=== PATIENT | female | born 1940 | race Caucasian/White ===

== ENCOUNTER → 2018-11-07 | Outpatient (CLI) | payer MEDICARE | END | disposition home or self-care (01) | LOC: LAB SHORT 19:32 → LAB EV 19:32 | DX: N39.0 Urinary tract infection, site not specified (principal) | CPT/HCPCS: 87086 ==

== ENCOUNTER 2019-03-19 21:25 | Emergency (ER) | payer MEDICARE ==
[~2019-03-19] VITALS: Ht 152.4 cm; Wt 74.8 kg
[2019-03-19 23:17] LABS: Source, Urine Clean Catch
[2019-03-19] MEDS ORDERED: Pyridium100 MG PO (23:18)
[2019-03-19] MEDS ORDERED: CEPH500 PO (23:18)
[2019-03-19 23:22] LABS: Bilirubin, Urine Neg (Neg); Blood, Urine 5+ (Neg); Glucose Qualitative, Urine Neg (Neg); Ketones, Urine 1+ (Neg); Leukocyte Esterase, Urine 3+ (Neg); Nitrite, Urine Neg (Neg); Protein, Urine 4+ (Neg); Urobilinogen, Urine NORM (Normal)
[2019-03-19 23:30] LABS: Appearance, Urine Cloudy (Clear); Color, Urine Red (P-Yellow)
[2019-03-19 23:31] LABS: Bacteria Few /hpf; Red Blood Cells, Urine TNTC /hpf (0-2); Squamous Epithelial Cells Few /hpf (Few); White Blood Cells, Urine 50-100 /hpf (0-5)
== END 2019-03-19 23:49 | disposition home or self-care (01) ==
LOC: ER 21:25
PROVIDERS: Physician Assistant
DX: N30.90 Cystitis, unspecified without hematuria (principal); I10 Essential (primary) hypertension; Z88.0 Allergy status to penicillin
CPT/HCPCS: 81001; 87086; 99283

== ENCOUNTER 2019-04-27 11:35 | Inpatient (IN) | payer MEDICARE ==
[~2019-04-27] VITALS: Ht 162.6 cm; Wt 74.0 kg
[~2019-04-27 11:35] MED LIST: ALBU90OI INH; AMOCLA875 PO; ARIP20 PO; ATOR40TA PO; AZIT500 PO; Acidophilus1 EAC1 PO; Augmentin 875-1 EACH PO; BREO ELLIPTA 11 EACH INH; CEFU500T30 PO; CEPH500 PO; CLOP75 PO; ELIQUIS5 MG PO; FURO40 PO; HYDURE500 PO; LEVSOD100 PO; LOSA25 PO; METO50 PO; Metronidazole T45 GM TOP; PANT40 PO; POTA20LUD PO; Pedi-Dri 100,0060 GM TOP; Pyridium100 MG PO; Roxicodone5 MG PO
[2019-04-27 12:24] LABS: BASOPHILS ABSOLUTE AUTO 0.12 K/mm3 (0.00-0.23); BASOPHILS PERCENT AUTO 1 % (0-2); EOSINOPHILS ABSOLUTE AUTO 0.02 K/mm3 (0.00-0.68); EOSINOPHILS PERCENT AUTO 0 % (0-6); Hematocrit 47.9 % (33.0-51.0); IMMATURE GRAN ABSOLUTE AUTO 0.44 K/mm3 (0.00-0.10); IMMATURE GRAN PERCENT AUTO 3 % (0-1); LYMPHOCYTES ABSOLUTE AUTO 0.69 K/mm3 (0.84-5.20); LYMPHOCYTES PERCENT AUTO 4 % (21-46); MONOCYTES ABSOLUTE AUTO 0.49 K/mm3 (0.16-1.47); MONOCYTES PERCENT AUTO 3 % (4-13); Mean Corpuscular HGB 23.5 pg (26.0-34.0); Mean Corpuscular HGB Conc 29.2 g/dL (31.5-36.5); Mean Corpuscular Volume 81 fL (80-100); NEUTROPHILS ABSOLUTE AUTO 16.02 K/mm3 (1.96-9.15); NEUTROPHILS PERCENT AUTO 90 % (41-73); Platelet Count 200 K/mm3 (150-400); RDW Coefficient Variation 19.1 % (11.7-14.2); RDW Standard Deviation 52.3 fL (35.1-46.3); Red Blood Cell Count 5.95 M/mm3 (3.80-5.20); White Blood Cell Count 17.78 K/mm3 (4.00-11.30)
[2019-04-27 12:32] LABS: Alanine Aminotransfer (ALT/SGP 39 U/L (12-78); Albumin, Blood 2.7 g/dL (3.4-5.0); Albumin/Globulin Ratio 0.6 (0.8-1.8); Alk Phos 85 U/L (50-136); Anion Gap 7 mmol/L (6-16); Aspartate Aminotrans (AST/SGOT 100 U/L (12-37); Bilirubin, Total 0.7 mg/dL (0.1-1.0); Blood Urea Nitrogen 16 mg/dL (8-24); Bun/Creatinine Ratio 19.5 (12.0-20.0); CO2, Blood 26 mmol/L (21-32); Calcium, Blood 8.7 mg/dL (8.5-10.1); Chloride, Blood 103 mmol/L (98-108); Creatinine, Blood 0.82 mg/dL (0.40-1.00); Globulin, Blood 4.7 g/dL (2.2-4.0); Glomerular Filtration Rate >60 (60-); Glucose, Blood 116 mg/dL (70-99); Potassium, Blood 4.2 mmol/L (3.5-5.5); Sodium, Blood 136 mmol/L (136-145); Total Protein, Blood 7.4 g/dL (6.4-8.2)
[2019-04-27 12:34] LABS: Troponin I 0.091 ng/mL (0.000-0.040)
[2019-04-27] MEDS ORDERED: HYDURE500 PO (15:02)
--- NOTE | 2019-04-27 18:02 | NUR ---
ECHOCARDIOGRAM COMPLETE
[2019-04-27 18:35] LABS: Adenovirus Not Detected (NOT DETECT); Bordetella pertussis Not Detected (NOT DETECT); Chlamydophila pneumoniae Not Detected (NOT DETECT); Coronavirus 229E Not Detected (NOT DETECT); Coronavirus HKU1 Not Detected (NOT DETECT); Coronavirus NL63 Not Detected (NOT DETECT); Coronavirus OC43 Not Detected (NOT DETECT); Human Metapneumovirus Not Detected (NOT DETECT); Human Rhinovirus/Enterovirus Not Detected (NOT DETECT); Influenza A/2009-H1 Not Detected (NOT DETECT); Influenza A/H1 Not Detected (NOT DETECT); Influenza A/H3 Not Detected (NOT DETECT); Influenza B Not Detected (NOT DETECT); Mycoplasma pneumoniae Not Detected (NOT DETECT); Parainfluenza Virus 1 Not Detected (NOT DETECT); Parainfluenza Virus 2 Not Detected (NOT DETECT); Parainfluenza Virus 3 Not Detected (NOT DETECT); Parainfluenza Virus 4 Not Detected (NOT DETECT); Respiratory Syncytial Virus Not Detected (NOT DETECT)
--- NOTE | 2019-04-27 19:39 | NUR ---
SHIFT SUMMARY- PT ADMITTED THROUGH THE ED. IVF STARTED, SCHEDULED MEDS GIVEN. PT SISTER HAS BEEN ASSISTING WITH HER ADLS. PT HAS HAD SEVERAL FALLS AT HOME SINCE DISCHARGE 9 DAYS AGO. PT WAS SEEN IN THE ED YESTERDAY FOR A FALL SEE ED DOCUMAENTATION FOR DETAILS. PT C/O PAIN BUT WAS MEDICATED PRIOR TO ADMISSION IN ED. PT MEDICATED WITH IV FENTANYL WHEN THE ECHO WAS BEING DONE THE CHEST IS THE CENTER FOR ALL OF HER ACUTE PAIN AT THIS TIME. LACERATION NOTED LEFT UPPER CHEST NEAR THE COLLAR BONE, FAINT BRUISING NOTED FROM THE LACERATION DOWN TO THE BASE OF THE STERNUM AND ACROSS THE CHEST. TROPONIN WAS ELEVATED .09 SECOND DRAW WAS 0.085. PT WAS PROVIDED A PILLOW FOR SPLINTING RESPIRATIONS, TURNED DOWN THE LIGHTS AND PT STATED HER PAIN WAS DOWN TO A 4/10 AFTER A FEW MINUTES AT REST.
--- NOTE | 2019-04-28 03:40 | NUR ---
PT PAIN UNCONTROLLED BY PRESENT PAIN RX. CALLED TO HOSPITALIST RECIEVED ORDER FOR DILAUDID.
[2019-04-28 06:03] LABS: Hemoglobin 12.4 g/dL (11.5-16.0); Mean Corpuscular HGB 23.3 pg (26.0-34.0); Mean Corpuscular HGB Conc 28.2 g/dL (31.5-36.5); Mean Corpuscular Volume 83 fL (80-100); Platelet Count 195 K/mm3 (150-400); RDW Coefficient Variation 18.5 % (11.7-14.2); RDW Standard Deviation 54.9 fL (35.1-46.3); Red Blood Cell Count 5.32 M/mm3 (3.80-5.20); White Blood Cell Count 14.52 K/mm3 (4.00-11.30)
[2019-04-28 06:04] LABS: Mean Platelet Volume 10.4 fL (9.1-12.4)
[2019-04-28 06:20] LABS: Anion Gap 4 mmol/L (6-16); Blood Urea Nitrogen 16 mg/dL (8-24); Bun/Creatinine Ratio 17.4 (12.0-20.0); CO2, Blood 28 mmol/L (21-32); Calcium, Blood 8.3 mg/dL (8.5-10.1); Chloride, Blood 108 mmol/L (98-108); Creatinine, Blood 0.92 mg/dL (0.40-1.00); Glomerular Filtration Rate >60 (60-); Glucose, Blood 101 mg/dL (70-99); Potassium, Blood 4.1 mmol/L (3.5-5.5); Sodium, Blood 140 mmol/L (136-145); Troponin I 0.057 ng/mL (0.000-0.040)
--- NOTE | 2019-04-28 07:56 | NUR ---
SHIFT SUMMARY PT IS PLEASANT AND COOPERATIVE WITH CARE. AAOX4. RESPIRATIONS ARE GUARDED AND PT HAS HAD QUITE A LOT OF PAIN IN HER CHEST CAUSED FROM A FALL AT HOME. SHE HAS BEEN TREATED THROUGH THE NIGHT FOR PAIN. DURING ATTENDS CHANGE AND REPOSITION LAST NIGHT PT CRIED OUT AND SAID PAIN WAS MUCH WORSE DUE TO ROLLING HER ON HER SIDE DURING ATTENDS CHANGE. CALLED TO HOSPITALIST AND OBTAINED ORDER FOR DILAUDED. THIS WAS GIVEN AND PT RELATED IT HELPED BUT DID NOT RESOLVE PAIN. PT SATS DROPPED TO 89 WITH DIALUDID ADMIN HOWEVER. WHEN ASKED ABOUT PAIN PT POINTS TO MID STERNUM AND STAYS IT IS WORSE WITH DEEP BREATHING AND MOVEMENT. VSS. ON TELE SR 96 ON LAST CHECK, AROUND 0630, PER ETCH OPERATOR SEMICONDUCTOR WAFERS. REPORT TO ONCOMING RN.
--- NOTE | 2019-04-28 16:45 | NUR ---
SHIFT SUMMARY- PT IS SLEEPING MUCH OF THIS SHIFT. SHE IS PAINFUL FROM HER FALL. FAMILY IS CONCERNED ABOUT WHAT WILL HAPPEN AFTER DISCHARG AND THEY ARE CONCERNED ABOUT IF SHE WILL GET BETTER OR NOT. PT IS INCONTINENT. HER AFFECT IS FLAT. SHE REPORTED HAVING A POOR APPETITE A FEW DAYS PRIOR TO ADMISSION, DUE TO FEELING POORLY FROM [place]. PHYSICAL THERAPY AND OCCUPATIONAL THERAPY TO EVALUATE, PT WAS TOO PAINFUL FOR THEM TO EVALUATE TODAY, THEY WILL TRY AGAIN TOMORROW. PT WAS EVALUATED BY SPEECH THERAPY AND WAS PLACED ON NPO STATUS. DR. RODRIGUEZ WAS NOTIFIED. SPEECH THERAPY WILL CONTINUE TO WORK WITH THE PT. PALLATIVE CARE CONSULT PLACED DUE TO FAMILYS CONCERNS.
[2019-04-29 04:31] LABS: BASOPHILS ABSOLUTE AUTO 0.05 K/mm3 (0.00-0.23); BASOPHILS PERCENT AUTO 0 % (0-2); EOSINOPHILS ABSOLUTE AUTO 0.06 K/mm3 (0.00-0.68); EOSINOPHILS PERCENT AUTO 0 % (0-6); Hematocrit 46.5 % (33.0-51.0); Hemoglobin 13.1 g/dL (11.5-16.0); IMMATURE GRAN ABSOLUTE AUTO 0.29 K/mm3 (0.00-0.10); IMMATURE GRAN PERCENT AUTO 2 % (0-1); LYMPHOCYTES ABSOLUTE AUTO 0.96 K/mm3 (0.84-5.20); LYMPHOCYTES PERCENT AUTO 7 % (21-46); MONOCYTES ABSOLUTE AUTO 0.26 K/mm3 (0.16-1.47); MONOCYTES PERCENT AUTO 2 % (4-13); Mean Corpuscular HGB 23.4 pg (26.0-34.0); Mean Corpuscular HGB Conc 28.2 g/dL (31.5-36.5); Mean Corpuscular Volume 83 fL (80-100); Mean Platelet Volume 9.3 fL (9.1-12.4); NEUTROPHILS PERCENT AUTO 88 % (41-73); Platelet Count 228 K/mm3 (150-400); RDW Standard Deviation 55.4 fL (35.1-46.3); Red Blood Cell Count 5.59 M/mm3 (3.80-5.20); White Blood Cell Count 13.72 K/mm3 (4.00-11.30)
--- NOTE | 2019-04-29 05:58 | NUR ---
CALL TO ANSWERING SERVICE DUE TO PT UNRELIEVED PAIN FROM IV FENTANYL. REQUESTED NSAID IN ATTEMPT TO FIND DIFFERENT CLASS OF MED THAT MAY WORK. DR. GERARDO ORDERED PRN TORADOL 15MG IV Q8HRS. PT AND HER SISTER STATES DUE TO PT'S POLYCYTHEMIA VERA, SHE MAY NOT TAKE NSAIDS. REFUSED MED. ORDER WAS NOT CARRIED OUT.
--- NOTE | 2019-04-29 06:16 | NUR ---
SHIFT SUMMARY: VSS. AFEB. 02 SAT 98% ON 2L VIA NC. FENTANYL ADMINISTERED Q4H W/MINIMAL EFFECT. PT STATES PAIN SHOOTS UP TO 10/10 W/EVEN THE SMALLEST MOVEMENTS. INCONTINENT. RESPS SHALLOW. WEAK COUGH. LS DIM. TELE SHOWING NSR PER RELEASE OF INFORMATION SPECIALIST. +1 EDEMA IN BLE, ELEVATED ON PILLOWS. JUAN JUST MINOR CHANGES IN POSITION. HOT PACK APPLIED TO CHEST AND LEFT RIBS. PT STATES HELPS SOME. SISTER AT BEDSIDE ALL NIGHT OFFERING PT COMFORT AND SUPPORT. HAS REMAINED NPO ALL NIGHT. CLINIMIX INFUSING PER ORDER. ABD FIRM, NON-TENDER. PT HAS NOT HAD A BM SINCE LAST SUNDAY PER SISTER. BT ACTIVE. SISTER STATES PT HAS HAD LITTLE TO EAT. LACERATAION ON L CHEST BILLY, NO ERYTHEMA OBSERVED. WILL CONT TO MONITOR.
--- NOTE | 2019-04-29 17:43 | NUR ---
Brief visit this afternoon. Pt reports 5/10 pain in her chest due to her fall. She reports pain is interfering with her taking deeper breaths. Pt's sister Peggy is at bedside. Pt is agreeable for this RN to make F/U visit tomorrow when her pain is managed. Spoke with full charge bookkeeper Jerilyn and relayed Pt's request for pain medications. Jerilyn will offer pain medication. Palliative Care will F/U for therapeutic visits and advanced care planning.
--- NOTE | 2019-04-29 18:42 | NUR ---
Initial spiritual care note: I met with Orquidea and her sister this afternoon. It is quite clear they are supportive and loving sisters. Orquidea expressed fear and concern about her decline. She moved to [place] last summer and seems to have great family support here. She knows she needs rehab, but also says she feels so weak and frail, that its hard to follow through. She appears quite debilitated, unable to even move herself the tiniest bit in bed. She is fearful she is dying. She was involved with the [facility] karyn community in [place], but has not been able to establish this relationship here. It apears that her sister has been doing a great deal of Orquidea's ADLs. Orquidea will benefit from ACP sometime before discharge. Prayer and theraputic listening provided. I will continue to see Orquidea as schedule permits.
--- NOTE | 2019-04-29 19:22 | NUR ---
1922: ASSUMED CARE OF PATIENT. PATIENT RESTING IN BED WITH AMILY AT BEDSIDE. PT IS VRY LETHARGIC AFTER RECEIVING LAST DOSE OR ORAL MEDS. VS SHOW BP ON LOW SIDE. ATTEMPT TO ROUSE PATIENT TO HAVE HER DRINK SOME FLUIDS BUT PATIENT IS TOO LETHARGIC TO DRINK. SHE IS SATURATING OK AND HER RR IS OK SO WILL RECHCK HER BP AND CONTINUE TO MONITOR FOR NOW.
--- NOTE | 2019-04-29 19:30 | NUR ---
SHIFT SUMMARY PT ALERT AND ORIENTED THIS SHIFT. PT CONTINUES TO HAVE SEVERE PAIN. PT MEDICATED THROUGHOUT THIS SHIFT PER EMAR. PT STATES PAIN REDUCED WHEN NOT MOVING/TALKING. PT'S SISTER AND KEVIN IN THE ROOM THIS SHIFT. SPEECH THERAPY IN ROOM, ADVANCED DIET THIS SHIFT. PT CURRENTLY RESTING IN ROOM, SISTER AT BEDSIDE.
--- NOTE | 2019-04-29 20:55 | NUR ---
2054: RECHECK OF BP IS BETTER. PATIENT IS SITTING UP AND A BIT MORE ALERT. DOESNT KNOW WHERE SHE IS. WILL CONTINUE TO MONITOR. SHIFT ASSESSMENT COMPLETED. FAMILY AT BEDSIDE.
--- NOTE | 2019-04-29 21:54 | NUR ---
2154: PATIENT IS MORE WAKEFUL AND RESPONSIVE AT THIS TIME. CHAMP PAIN AT THIS TIME. SHE BECOMES PAINFL WHEN WE MOVE HER. ELEVATED B/L LEs FOR 1+ EDEMA. PATIENT ABLE TO TAKE MEDS IN SAUCE. LINEN CHACKED AND PATIENT REPOSITIONED. CALL AMAYA WITHIN REACH. WILL CONTINUE TO MONITOR.
[2019-04-30 05:23] LABS: Magnesium, Blood 2.2 mg/dL (1.6-2.4)
[2019-04-30 05:24] LABS: Anion Gap 4 mmol/L (6-16); Blood Urea Nitrogen 19 mg/dL (8-24); Bun/Creatinine Ratio 18.1 (12.0-20.0); CO2, Blood 29 mmol/L (21-32); Calcium, Blood 8.3 mg/dL (8.5-10.1); Chloride, Blood 107 mmol/L (98-108); Creatinine, Blood 1.05 mg/dL (0.40-1.00); Glomerular Filtration Rate 54 (60-); Glucose, Blood 90 mg/dL (70-99); Phosphorus, Blood 3.1 mg/dL (2.5-4.9); Potassium, Blood 4.1 mmol/L (3.5-5.5); Sodium, Blood 140 mmol/L (136-145); Triglycerides 72 mg/dL (30-160)
--- NOTE | 2019-04-30 07:50 | NUR ---
END OF SHIFT. PT WAS STIFF AND PAINFUL WHEN MOVING THIS SHIFT. SHE WAS VERY SEDATED EARLY IN THE SHIFT AND HAD SOME LOW BPS BUT WE MONITORED HER AND THIS MORNING SHE IS MUCH MORE AWAKE AND RESPONSIVE. I GAVE TYLENOL AND FENTANYL FOR THE PAIN. REPORT PASSED TO DAY NURSE LUPILLO.
--- NOTE | 2019-04-30 18:53 | NUR ---
SHIFT SUMMARY PT ALERT AND ORIENTED THIS SHIFT. PT CONTINUES TO HAVE PAIN, BUT LESS SEVERE THAN PREVIOUS SHIFT. PT UP TO CHAIR AND FROM CHAIR TO COMODE MULTIPLE TIMES THIS SHIFT WITH 2 PERSON ASSIST. PT'S SISTER AND KEVIN IN THE ROOM FOR MUCH OF THIS SHIFT. PT DOWN FOR A BARIUM SWALLOW TEST THIS SHIFT. PT SITTING UP IN CHAIR, FAMILY IN THE ROOM.
[2019-05-01 05:23] LABS: Anion Gap 5 mmol/L (6-16); Blood Urea Nitrogen 19 mg/dL (8-24); Bun/Creatinine Ratio 22.7 (12.0-20.0); CO2, Blood 26 mmol/L (21-32); Calcium, Blood 8.3 mg/dL (8.5-10.1); Chloride, Blood 107 mmol/L (98-108); Creatinine, Blood 0.84 mg/dL (0.40-1.00); Glomerular Filtration Rate >60 (60-); Glucose, Blood 113 mg/dL (70-99); Magnesium, Blood 2.2 mg/dL (1.6-2.4); Phosphorus, Blood 2.7 mg/dL (2.5-4.9); Potassium, Blood 3.6 mmol/L (3.5-5.5); Sodium, Blood 138 mmol/L (136-145)
--- NOTE | 2019-05-01 07:39 | NUR ---
Patient aox4 this shift. she receved pain med per Emar this shift. also tylenol. patient doing well and seems much stronger today. plesant and cooperative with care.
--- NOTE | 2019-05-01 09:49 | NUR ---
ASKED Pt IF I CAN CHECK HER ATTENDS TO SEE IF SHE IS WET,Pt REFUSED AND SAID SHE DOESNT NEED HELP, Pt IS KNOWN TO HAVE INCONTINENT EPISODES.
--- NOTE | 2019-05-01 18:55 | NUR ---
PATIENT IS ALERT AND ORIENTED AND COOPERATIVE WITH CARE. FAMILY HAS BEEN AT THE BEDSIDE ALL DAY. PATIENT IS CONTINENT OF BOWEL AND BLADDER, WILL CALL FOR ASSISTANCE TO THE BSC. SHE IS A 2PA. SHE IS WEAK. SHE HAD TWO BM'S TODAY. TELEMETRY IS IN PLACE. WILL CONTINUE TO MONITOR
[2019-05-02 05:07] LABS: Anion Gap 5 mmol/L (6-16); Blood Urea Nitrogen 19 mg/dL (8-24); Bun/Creatinine Ratio 24.3 (12.0-20.0); CO2, Blood 28 mmol/L (21-32); Calcium, Blood 8.1 mg/dL (8.5-10.1); Chloride, Blood 107 mmol/L (98-108); Creatinine, Blood 0.78 mg/dL (0.40-1.00); Glomerular Filtration Rate >60 (60-); Glucose, Blood 134 mg/dL (70-99); Magnesium, Blood 2.1 mg/dL (1.6-2.4); Potassium, Blood 3.7 mmol/L (3.5-5.5); Sodium, Blood 140 mmol/L (136-145)
--- NOTE | 2019-05-02 06:29 | NUR ---
SUMMARY: PT IS A/O AND COOPERATIVE W/CARE BUT IS OCCASIONALLY FORGETFULL TO TIME, REMINDERS PROVIDED PRN. SUPPORTIVE FAMILY REMAIN AT BEDSIDE AND ASSIST W/CARE. SHE REMAINED IN BED THIS SHIFT BUT IS 2P ASSIST W/FWW AND GAIT BELT FOR T/F'S. PT ADMITS TO FEELING WEAK/DECONDITIONED. GRADUAL REPOSITIONING ATTENDED TO AND PT REPORTS PAIN TO CHEST AND STIFFNESS W/TURNS. SHE FELL PRIOR TO ADMISSION AND HAS MULTIPLE BRUISES AND CHEST LACERATION W/SCABBING OBSERVED. FENTANYL IV RECIEVED X1 DOSE FOR GOOD PAIN RELIEF. PT WAS INCONTINENT OF BOWEL/BLADDER W/ATTENDS CHANGED PRN. CREAM APPLIED TO BUTTOCKS. FEEDER ASSIST REQUIRED, ASPIRATION PREC'S MAINTAINED AND PILLS PROVIDED W/ THICKENED LIQ'S OR APPLESAUCE. NO ACUTE CHANGES. VSS/AFEBRILE. PT REMAINS NSR/S.TACH AT 90'S-100'S BPM. WCTM AND REPORT TO DAY RN.
[2019-05-02] MEDS ORDERED: SENNA PLUS 8.61 EACH PO (11:13)
[2019-05-02] MEDS ORDERED: MILK OF MA400 MG/5 M PO (11:14)
[2019-05-02] MEDS ORDERED: PERCOCET 10-321 EACH PO (11:15)
[2019-05-02] MEDS ORDERED: DRONABINOL PO (11:19)
--- NOTE | 2019-05-02 15:47 | NUR ---
PT WAS TRANSPORTED TO [facility] VIA AMBULANCE TODAY. REPORT WAS CALLED TO RECIEVING RN. PACKET WAS SENT WITH HEAD IRRIGATOR FOR PT. NO DISTRESS NOTED. PT WAS A TWO PERSON TRANSFER WITH WALKER TO CHAIR OR COMMODE. PT PLEASANT TO CARE FOR. PT DID NOT EAT ANY BREAKFAST AND HAD ONE BOUGHT OF NAUSEA. DR RODRIGUEZ WAS NOTIFIED. NO OTHER PROBLEMS PT ABLE TO STATE HER NEEDS. ALL PERSONAL BELONGINGS WERE WITH PT. FAMILY AT WAS AT BEDSIDE WHEN SHE WAS TRANSFERED.
== END 2019-05-02 13:41 | DRG 871 ==
LOC: ER 11:35 → MEDS 14:39
PROVIDERS: Emergency Medicine; Internal Medicine; ADMIT Internal Medicine
DX: A41.9 Sepsis, unspecified organism (principal); J96.01 Acute respiratory failure with hypoxia; J69.0 Pneumonitis due to inhalation of food and vomit; I25.10 Atherosclerotic heart disease of native coronary artery without angina pectoris; I10 Essential (primary) hypertension; E03.9 Hypothyroidism, unspecified; D45 Polycythemia vera; I48.91 Unspecified atrial fibrillation; S20.219A Contusion of unspecified front wall of thorax, initial encounter; Z86.718 Personal history of other venous thrombosis and embolism; Z95.5 Presence of coronary angioplasty implant and graft; Z88.1 Allergy status to other antibiotic agents; Z88.0 Allergy status to penicillin; Z79.02 Long term (current) use of antithrombotics/antiplatelets; Z79.899 Other long term (current) drug therapy
CPT/HCPCS: 0099U; 36415; 71045; 74230; 80048; 80053; 82947; 83605; 83735; 83880; 84100; 84145; 84478; 84484; 85025; 85027; 92526; 92610; 92611; 93005; 93010; 93306; 94640; 94760; 94762; 97110; 97162; 97166; 97530; 99285-25; A9270; A9270-GY; J1170; J2405; J2543; J3010; J3411; J7120

== ENCOUNTER → 2019-06-06 | Outpatient (CLI) | payer MEDICARE ==
[~2019-06-06] MED LIST changes: +CEFD300 PO; +DRON2.5 PO; +DRONABINOL PO; +METO50ER PO; +MILK OF MA400 MG/5 M PO; +PERCOCET 10-321 EACH PO; +POTCHL20ER PO; +SENNA PLUS 8.61 EACH PO
== END | disposition home or self-care (01) ==
LOC: LAB SHORT 16:12 → LAB EV 16:12
DX: N39.0 Urinary tract infection, site not specified (principal)
CPT/HCPCS: 87086; 87147

== ENCOUNTER 2019-06-08 16:48 | Inpatient (IN) | payer MEDICARE ==
[~2019-06-08] VITALS: Ht 162.6 cm; Wt 70.6 kg
[~2019-06-08 16:48] MED LIST changes: -CEFD300 PO; -DRON2.5 PO; -METO50ER PO; -POTCHL20ER PO
[2019-06-08] MEDS ORDERED: CEFD300 PO (17:06)
[2019-06-08 17:19] LABS: Source, Urine Catheter
[2019-06-08 17:22] LABS: Bilirubin, Urine Neg (Neg); Blood, Urine 1+ (Neg); Glucose Qualitative, Urine Neg (Neg); Ketones, Urine Neg (Neg); Leukocyte Esterase, Urine 2+ (Neg); Nitrite, Urine Neg (Neg); Protein, Urine Neg (Neg); Specific Gravity, Urine 1.015 (1.003-1.022); Urobilinogen, Urine NORM (Normal)
[2019-06-08 17:32] LABS: Appearance, Urine Clear (Clear); Color, Urine Yellow (P-Yellow)
[2019-06-08 17:33] LABS: Bacteria Few /hpf; Squamous Epithelial Cells Mod /hpf (Few); White Blood Cells, Urine 25-50 /hpf (0-5)
[2019-06-08 17:34] LABS: Yeast/Fungi Urine Mod /hpf
[2019-06-08 17:39] LABS: BASOPHILS ABSOLUTE AUTO 0.06 K/mm3 (0.00-0.23); BASOPHILS PERCENT AUTO 0 % (0-2); EOSINOPHILS ABSOLUTE AUTO 0.02 K/mm3 (0.00-0.68); EOSINOPHILS PERCENT AUTO 0 % (0-6); Hematocrit 46.6 % (33.0-51.0); Hemoglobin 13.6 g/dL (11.5-16.0); IMMATURE GRAN ABSOLUTE AUTO 0.76 K/mm3 (0.00-0.10); IMMATURE GRAN PERCENT AUTO 6 % (0-1); LYMPHOCYTES ABSOLUTE AUTO 0.52 K/mm3 (0.84-5.20); LYMPHOCYTES PERCENT AUTO 4 % (21-46); MONOCYTES ABSOLUTE AUTO 0.44 K/mm3 (0.16-1.47); MONOCYTES PERCENT AUTO 3 % (4-13); Mean Corpuscular HGB 23.7 pg (26.0-34.0); Mean Corpuscular HGB Conc 29.2 g/dL (31.5-36.5); Mean Corpuscular Volume 81 fL (80-100); Mean Platelet Volume 9.9 fL (9.1-12.4); NEUTROPHILS ABSOLUTE AUTO 11.73 K/mm3 (1.96-9.15); NEUTROPHILS PERCENT AUTO 87 % (41-73); Platelet Count 443 K/mm3 (150-400); RDW Coefficient Variation 16.8 % (11.7-14.2); RDW Standard Deviation 48.4 fL (35.1-46.3); Red Blood Cell Count 5.75 M/mm3 (3.80-5.20); White Blood Cell Count 13.53 K/mm3 (4.00-11.30)
[2019-06-08 17:59] LABS: Alanine Aminotransfer (ALT/SGP 9 U/L (12-78); Albumin, Blood 2.4 g/dL (3.4-5.0); Albumin/Globulin Ratio 0.5 (0.8-1.8); Alk Phos 104 U/L (50-136); Anion Gap 7 mmol/L (6-16); Aspartate Aminotrans (AST/SGOT 25 U/L (12-37); Bilirubin, Total 0.8 mg/dL (0.1-1.0); Blood Urea Nitrogen 12 mg/dL (8-24); Bun/Creatinine Ratio 16.6 (12.0-20.0); CO2, Blood 27 mmol/L (21-32); Calcium, Blood 8.4 mg/dL (8.5-10.1); Chloride, Blood 99 mmol/L (98-108); Creatinine, Blood 0.72 mg/dL (0.40-1.00); Glomerular Filtration Rate >60 (60-); Glucose, Blood 121 mg/dL (70-99); Lactate Dehydrogenase (Ld),Bld 266 U/L (100-240); Potassium, Blood 3.4 mmol/L (3.5-5.5); Sodium, Blood 133 mmol/L (136-145); Total Protein, Blood 7.4 g/dL (6.4-8.2); Troponin I 0.022 ng/mL (0.000-0.040)
[2019-06-08] MEDS ORDERED: LOSA25 PO (18:06)
[2019-06-08] MEDS ORDERED: DRON2.5 PO (18:06)
[2019-06-08] MEDS ORDERED: POTCHL20ER PO (18:07)
[2019-06-08] MEDS ORDERED: METO50ER PO (18:07)
[2019-06-08 18:08] LABS: Influenza A Negative (NEGATIVE); Influenza B Negative (NEGATIVE)
[2019-06-09 01:13] LABS: Adenovirus Not Detected (NOT DETECT); Coronavirus 229E Not Detected (NOT DETECT); Coronavirus HKU1 Not Detected (NOT DETECT); Coronavirus NL63 Not Detected (NOT DETECT); Coronavirus OC43 Not Detected (NOT DETECT)
[2019-06-09 01:14] LABS: Bordetella pertussis Not Detected (NOT DETECT); Chlamydophila pneumoniae Not Detected (NOT DETECT); Human Metapneumovirus Not Detected (NOT DETECT); Human Rhinovirus/Enterovirus Not Detected (NOT DETECT); Influenza A/2009-H1 Not Detected (NOT DETECT); Influenza A/H1 Not Detected (NOT DETECT); Influenza A/H3 Not Detected (NOT DETECT); Influenza B Not Detected (NOT DETECT); Mycoplasma pneumoniae Not Detected (NOT DETECT); Parainfluenza Virus 1 Not Detected (NOT DETECT); Parainfluenza Virus 2 Not Detected (NOT DETECT); Parainfluenza Virus 3 Not Detected (NOT DETECT); Parainfluenza Virus 4 Not Detected (NOT DETECT); Respiratory Syncytial Virus Not Detected (NOT DETECT)
[2019-06-09 04:15] LABS: BASOPHILS ABSOLUTE AUTO 0.08 K/mm3 (0.00-0.23); BASOPHILS PERCENT AUTO 1 % (0-2); EOSINOPHILS ABSOLUTE AUTO 0.04 K/mm3 (0.00-0.68); EOSINOPHILS PERCENT AUTO 0 % (0-6); Hematocrit 40.6 % (33.0-51.0); Hemoglobin 11.8 g/dL (11.5-16.0); IMMATURE GRAN ABSOLUTE AUTO 0.57 K/mm3 (0.00-0.10); IMMATURE GRAN PERCENT AUTO 4 % (0-1); LYMPHOCYTES ABSOLUTE AUTO 1.84 K/mm3 (0.84-5.20); LYMPHOCYTES PERCENT AUTO 11 % (21-46); MONOCYTES ABSOLUTE AUTO 0.73 K/mm3 (0.16-1.47); MONOCYTES PERCENT AUTO 5 % (4-13); Mean Corpuscular HGB 23.5 pg (26.0-34.0); Mean Corpuscular HGB Conc 29.1 g/dL (31.5-36.5); Mean Corpuscular Volume 81 fL (80-100); Mean Platelet Volume 9.4 fL (9.1-12.4); NEUTROPHILS ABSOLUTE AUTO 13.06 K/mm3 (1.96-9.15); NEUTROPHILS PERCENT AUTO 80 % (41-73); Platelet Count 362 K/mm3 (150-400); RDW Coefficient Variation 16.8 % (11.7-14.2); RDW Standard Deviation 48.6 fL (35.1-46.3); Red Blood Cell Count 5.02 M/mm3 (3.80-5.20); White Blood Cell Count 16.32 K/mm3 (4.00-11.30)
--- NOTE | 2019-06-09 04:31 | NUR ---
SUMMARY PT ARRIVED TO FLOOR IN SOME DISCOMFORT. PT TX PER EMAR W/ RELIEF. PT IS PLESANTLY CONFUSED. PT SIDDIQUI IS DRAINING YELLOW URINE. PT IS CURRENTLY SLEEPING AND BREATHING EASY. CALL LIGHT IN REACH AND BED ALARM ON.
[2019-06-09 04:36] LABS: Anion Gap 6 mmol/L (6-16); Blood Urea Nitrogen 11 mg/dL (8-24); CO2, Blood 29 mmol/L (21-32); Calcium, Blood 7.8 mg/dL (8.5-10.1); Chloride, Blood 101 mmol/L (98-108); Creatinine, Blood 0.73 mg/dL (0.40-1.00); Glomerular Filtration Rate >60 (60-); Glucose, Blood 94 mg/dL (70-99); Potassium, Blood 3.7 mmol/L (3.5-5.5); Sodium, Blood 136 mmol/L (136-145)
--- NOTE | 2019-06-09 09:43 | NUR ---
SIDDIQUI CATHETER DR. THOMAS CALLED & INFORMED THAT PT HAS SIDDIQUI CATHETER INSERTED WITHNO ORDER. PT IS MOBILE WITH 1P ASSIST. DR. THOMAS ORDERED TO DC SIDDIQUI AND MONITOR OUTPUT. SIDDIQUI REMOVED AT 0940. WILL CONTINUE TO MONITOR.
--- NOTE | 2019-06-09 10:40 | NUR ---
ATTEMPTED TO RETURN CALL TO [facility]. NO ANSWER.
--- NOTE | 2019-06-09 12:37 | NUR ---
REGINALD APONTE CALLED. [place] NURSE, LOULOU CALLED AND WAS GIVEN UPDATE ON PT CONDITION. LOULOU IS GOING TO CALL & UPDATE FAMILY AND GIVE ROOM NUMBER. LOULOU REPORTED THAT PT NORMALLY IS CONT/INCONT OF URINE. PT ALSO HAS DYSPHAGIA AND FOLLOW A NO MIXED CONSISTANCY DIET AND MECH SOFT.
--- NOTE | 2019-06-09 15:32 | NUR ---
PT SISTER UPDATED ON PT CONDITION AND PLAN OF CARE.
[2019-06-09 17:30] LABS: Source, Urine Catheter
[2019-06-09 17:40] LABS: Bilirubin, Urine Neg (Neg); Blood, Urine 4+ (Neg); Glucose Qualitative, Urine Neg (Neg); Ketones, Urine Neg (Neg); Leukocyte Esterase, Urine 1+ (Neg); Nitrite, Urine Neg (Neg); Protein, Urine 2+ (Neg); Specific Gravity, Urine 1.015 (1.003-1.022); Urobilinogen, Urine NORM (Normal)
--- NOTE | 2019-06-09 17:40 | NUR ---
SHIFT SUMMARY PT HAD SIDDIQUI REMOVED THIS AM DUE TO NO ORDER. PT CONTINUED TO BE UNABLE TO VOID T/O SHIFT. DR. THOMAS ORDERED TO PLACE A NEW ONE IF BLADDER SCAN VOLUME IS MORE THAN 300CC. NEW SIDDIQUI PLACED THIS AFTERNOON. PT EDUCATED ON NEED FOR SIDDIQUI. PT SISTER UPDATED THIS SHIFT. PT AMBULATING WELL TO THE BATHROOM WITH ASSISTANCE. PT EVALUATED BY DR. KENNETH DALAL SHIFT AND UPDATED TO CLEAR LIQ DIET. NO OTHER ACUTE CHANGES IN ASSESSMENT AT THIS TIME. VSS. WILL CONTINUE TO MONITOR UNTIL TURNOVER IS COMPLETE.
[2019-06-09 17:46] LABS: Appearance, Urine Hazy (Clear); Color, Urine Yellow (P-Yellow)
[2019-06-09 17:48] LABS: Bacteria Mod /hpf; Squamous Epithelial Cells Few /hpf (Few)
--- NOTE | 2019-06-09 23:40 | NUR ---
06/09/19 2330 AWAKE AND REPOSITIONED TO RIGHT SIDE WITH PILLOWS. PT HELPED SOME WITH TURNING. SIPS OF JUICE TAKEN. NO C/O DISCOMFORT OR OTHER S/S.
--- NOTE | 2019-06-10 03:06 | NUR ---
06/10/19 0255 PT C/O BEING UNABLE TO SLEEP DUE TO SEVERE BACK PAIN AT LEVEL "8". MEDICATED PER APR. REPOSITIONED IN BED. BED ALARM ON.
[2019-06-10 04:35] LABS: BASOPHILS ABSOLUTE AUTO 0.06 K/mm3 (0.00-0.23); BASOPHILS PERCENT AUTO 0 % (0-2); EOSINOPHILS ABSOLUTE AUTO 0.06 K/mm3 (0.00-0.68); EOSINOPHILS PERCENT AUTO 0 % (0-6); IMMATURE GRAN ABSOLUTE AUTO 0.52 K/mm3 (0.00-0.10); IMMATURE GRAN PERCENT AUTO 4 % (0-1); LYMPHOCYTES ABSOLUTE AUTO 1.09 K/mm3 (0.84-5.20); LYMPHOCYTES PERCENT AUTO 7 % (21-46); MONOCYTES ABSOLUTE AUTO 0.58 K/mm3 (0.16-1.47); MONOCYTES PERCENT AUTO 4 % (4-13); Mean Corpuscular HGB 23.5 pg (26.0-34.0); Mean Corpuscular HGB Conc 28.9 g/dL (31.5-36.5); Mean Corpuscular Volume 81 fL (80-100); Mean Platelet Volume 8.8 fL (9.1-12.4); NEUTROPHILS ABSOLUTE AUTO 12.73 K/mm3 (1.96-9.15); NEUTROPHILS PERCENT AUTO 85 % (41-73); Platelet Count 344 K/mm3 (150-400); RDW Coefficient Variation 16.7 % (11.7-14.2); RDW Standard Deviation 48.9 fL (35.1-46.3); Red Blood Cell Count 4.69 M/mm3 (3.80-5.20); White Blood Cell Count 15.04 K/mm3 (4.00-11.30)
[2019-06-10 05:11] LABS: Alanine Aminotransfer (ALT/SGP 9 U/L (12-78); Albumin, Blood 1.8 g/dL (3.4-5.0); Albumin/Globulin Ratio 0.5 (0.8-1.8); Alk Phos 82 U/L (50-136); Anion Gap 5 mmol/L (6-16); Aspartate Aminotrans (AST/SGOT 13 U/L (12-37); Bilirubin, Total 0.5 mg/dL (0.1-1.0); Blood Urea Nitrogen 8 mg/dL (8-24); Bun/Creatinine Ratio 11.8 (12.0-20.0); CO2, Blood 25 mmol/L (21-32); Calcium, Blood 7.2 mg/dL (8.5-10.1); Chloride, Blood 107 mmol/L (98-108); Creatinine, Blood 0.68 mg/dL (0.40-1.00); Free Thyroxine 1.59 ng/dL (0.70-1.60); Globulin, Blood 3.7 g/dL (2.2-4.0); Glomerular Filtration Rate >60 (60-); Glucose, Blood 97 mg/dL (70-99); Potassium, Blood 3.7 mmol/L (3.5-5.5); Sodium, Blood 137 mmol/L (136-145); Total Protein, Blood 5.5 g/dL (6.4-8.2)
--- NOTE | 2019-06-10 05:53 | NUR ---
06/10/19 0545 PT WAS AWAKE MOST OF SHIFT WATCHING TV. MEDICATED FOR CHRONIC BACK PAIN PER MAR TWICE LAST NIGHT. VITALS STABLE. REPOSITIONED Q 2 HOURS TOLERATED. PT VERY WEAK AND NOT ABLE TO HELP WITH CARE. HAD ONE LOOSE, BROWN BM THIS SHIFT. SIDDIQUI PATENT AND DRAINING WELL.
--- NOTE | 2019-06-10 16:10 | NUR ---
SHIFT SUMMARY PATIENT DENIES PAIN, NAUSEA, AND SHORTNESS OF BREATH. PATIENT WORKED WITH PT/OT TODAY. PATIENT UP SBA W/FWW AND GAIT BELT TO BATHROOM. PATIENT UP IN CHAIR FIRST HALF OF SHIFT. PATIENT CAN BE FORGETFUL. PLEASANT AND COOPERATIVE WITH CARE, CALL LIGHT IN REACH.
--- NOTE | 2019-06-11 04:50 | NUR ---
SHIFT SUMMARY- PT. A&O, FORGETFUL AT TIMES. PLEASANT AND COOPERATIVE WITH CARE. SLEPT WELL DURING THE NIGHT. NO APPARENT DISTRESS NOTED. REPOSITIONED Q2 AND PRN FOR COMFORT. PT. TOLERATING IV THERAPY WELL. NO C/O ABD PAIN T/O THE NIGHT AND TOLERATING DIET. DENIED ANY NEEDS T/O THE SHIFT. CALL LIGHT WITHIN REACH, SIDE RAILS UP X2, AND BED ALARM ON FOR SAFETY. WILL CONT TO MONITOR.
--- NOTE | 2019-06-11 16:38 | NUR ---
SHIFT SUMMARY PATIENT DENIES PAIN, NAUSEA, AND SHORTNESS OF BREATH. PATIENT UP SBA W/FWW TO BATHROOM. PATIENT UP IN CHAIR FOR MEALS. SIDDIQUI REMOVED TODAY, PATIENT HAS YET TO VOID. Q6 BLADDER SCANS. PATIENT A LIKELY DISCHARGE TOMORROW. CALL LIGHT IN REACH.
--- NOTE | 2019-06-11 16:39 | NUR ---
Initial spiritual care note: Orquidea was sitting up in chair and alert. She appeared suspicious at first, but warmed a bit when I told her I was here to offer prayer/encouragement. She said very little. She was not certain why she was hospitalized again. I provided prayer and assurance of care and attention. I will remain available.
--- NOTE | 2019-06-12 04:07 | NUR ---
SHIFT SUMMARY PATIENT HAD NO ACUTE CHANGES OBSERVED. AXOX 2 AND HX OF DEMENTIA. TAKES MEDICATION WHOLE ONE AT A TIME. PIV REMAINS INTACT. DENIES PAIN, SOB, AND N/V. BED ALARM ACTIVATED AND NO EXIT EVENTS. UP WITH ONE ASSIST W/FWW TO BSC. CALL LIGHT IN REACH. BED IN LOWEST POSITION. WILL CONTINUE TO MONITOR UNTIL DAY SHIFT NURSE ASSUMES CARE.
[2019-06-12 04:35] LABS: BASOPHILS ABSOLUTE AUTO 0.04 K/mm3 (0.00-0.23); BASOPHILS PERCENT AUTO 1 % (0-2); EOSINOPHILS ABSOLUTE AUTO 0.07 K/mm3 (0.00-0.68); EOSINOPHILS PERCENT AUTO 1 % (0-6); Hematocrit 38.6 % (33.0-51.0); Hemoglobin 10.8 g/dL (11.5-16.0); IMMATURE GRAN ABSOLUTE AUTO 0.22 K/mm3 (0.00-0.10); IMMATURE GRAN PERCENT AUTO 3 % (0-1); LYMPHOCYTES ABSOLUTE AUTO 1.25 K/mm3 (0.84-5.20); LYMPHOCYTES PERCENT AUTO 16 % (21-46); MONOCYTES ABSOLUTE AUTO 0.32 K/mm3 (0.16-1.47); MONOCYTES PERCENT AUTO 4 % (4-13); Mean Corpuscular HGB 23.4 pg (26.0-34.0); Mean Platelet Volume 9.3 fL (9.1-12.4); NEUTROPHILS ABSOLUTE AUTO 6.07 K/mm3 (1.96-9.15); NEUTROPHILS PERCENT AUTO 76 % (41-73); Platelet Count 325 K/mm3 (150-400); RDW Coefficient Variation 17.1 % (11.7-14.2); RDW Standard Deviation 51.7 fL (35.1-46.3); Red Blood Cell Count 4.62 M/mm3 (3.80-5.20); White Blood Cell Count 7.97 K/mm3 (4.00-11.30)
[2019-06-12 04:39] LABS: Mean Corpuscular Volume 84 fL (80-100)
[2019-06-12 05:00] LABS: Anion Gap 3 mmol/L (6-16); Blood Urea Nitrogen 6 mg/dL (8-24); Bun/Creatinine Ratio 8.1 (12.0-20.0); CO2, Blood 25 mmol/L (21-32); Chloride, Blood 110 mmol/L (98-108); Creatinine, Blood 0.74 mg/dL (0.40-1.00); Glomerular Filtration Rate >60 (60-); Glucose, Blood 81 mg/dL (70-99); Potassium, Blood 3.8 mmol/L (3.5-5.5); Sodium, Blood 138 mmol/L (136-145)
--- NOTE | 2019-06-12 17:47 | NUR ---
SHIFT SUMMARY. A&OX3, INTERMITTENT FORGETFULLNESS, PLEASANT AND COOPERATIVE WITH CARE. THIS AM PT REPORTED MILD L UPPER ABD PAIN THAT WAS TOLERABLE AND DID NOT REQUIRE INTERVENTION. THIS AFTERNOON PT C/O RLQ ABD PAIN, PRN APAP GIVEN. PT BLADDER SCANNED, ALTHOUGH SHE HAD 2 CONTINENT VOIDS THIS SHIFT, BLADDER SCAN VOLUME GREATER THAN 800ML. PT ATTEMPTED TO VOID BUT WAS UNABLE. PT STRAIGHTED CATH, 800ML DRAINED. DR. PHAN NOTIFIED, NEW ORDERS FOR FLOMAX AND STRAIGHT CATH FOR BLADDER SCAN VOLUME GREATER THAN 250ML. AFEBRILE THIS SHIFT. NO OTHER CHANGES OR CONCERNS.
--- NOTE | 2019-06-12 21:40 | NUR ---
7070 SPOKE TO CARMEN AT [facility]. STATED THAT PRIOR TO PATIENT DISCHARGE FACILITY NEEDS TO BE CONTACTED SO THAT THEIR RN (LOULOU) CAN GIVE APPROVAL OF RE-ADMISSION.
--- NOTE | 2019-06-12 23:45 | NUR ---
5465 STATUE CARVER IN TO BLADDER SCAN PATIENT. AFTER SCAN STATUE CARVER ASKED THAT PATIENT AMBULATION TO RESTROOM AND TRY TO VOID, PATIENT REFUSED. THIS RN WENT TO EXPLAIN SITUATION TO PATIENT AND THAT SHE WAS OVER THE RECOMMENDED ORDER TO PLACE A CATHETER INTO HER BLADDER. PATIENT STATED THAT SHE WOULD GET UP AND TRY TO VOID. WAS NOT SUCCESSFUL. WILL RE-SCAN IN 1 HR.
--- NOTE | 2019-06-13 01:24 | NUR ---
0124 FLOWER SHOP MANAGER IN TO BLADDER SCAN PATIENT AGAIN. WHEN ASKED IF PATIENT HAD TO URINATE; NO ONLY STOOL. AMBULATED TO BATHROOM 1P ASSISTANCE WITH FWW. PATIENT STATED STILL UNABLE TO VOID.
--- NOTE | 2019-06-13 04:24 | NUR ---
SHIFT SUMMARY A/O, ABLE TO MAKE NEEDS KNOWN. FORGETFUL AT TIMES. COOPERATIVE WITH CARE. NO C/O PAIN. STATES DISCOMFORT TO LOWER ABD AND RIMMA AREA DURING RIMMA-CARE. REQUIRED STRAIGHT CATH X1. EXITS BED WITHOUT USING CALL LIGHT; CONTINUED REMINDERS. 1P ASSIST /c FWW TO BATHROOM. VSS/AFEBRILE. NO ACUTE CHANGES NOTED OVERNIGHT. BED IN LOWEST POSITION; ALARM ON. CALL LIGHT AND BELONGINGS WITHIN REACH. WCTM. REPORT TO ONCOMING RN.
--- NOTE | 2019-06-13 18:38 | NUR ---
SHIFT SUMMARY. PT STRENGTH AND ENDURANCE CONTINUES TO IMPROVE. PT STILL RETAINING URINE. FLOMAX STARTED THIS AM. BLADDER SCAN AT APROXIMATELY 1130 REVEALED VOLUME OF 350ML, PT REFUSED STRAIGHT CATH AT THIS TIME. BLADDER SCAN REPEATED AT APROXIMATELY 1600, VOLUME OVER 800ML. PT ABLE TO VOID 100ML IN TOILET, STRAIGHT CATH PERFORMED AND 500ML URINE DRAINED. PT'S RIMMA AREA RED AND IRRATED, RIMMA CARE AND BARRIER CREAM APPLIED TWICE THIS SHIFT. NO OTHER CHANGES OR CONCERNS.
--- NOTE | 2019-06-13 21:43 | NUR ---
REPORT GIVEN TO MEGHA HARO TO ASSUME CARE, PT BEDRESTING, NO NEEDS AT THIS TIME
--- NOTE | 2019-06-14 01:40 | NUR ---
0130 PT ENCOURAGED TO VOID PRIOR TO BLADDER SCAN. PT REFUSED DUE TO NOT HAVING URGE TO GO. PT BLADDER SCANNED AND 832 ML WAS NOTED. PT REFUSED TO BE STRIGHT CATHED. WCTM.
--- NOTE | 2019-06-14 03:22 | NUR ---
SUMMARY PT HAD NOTED 832 ML WHEN BLADDER SCANNED. PT HAD REFUSED TO ATTEMPT TO VOID AND STRIGHT CATH. PT EVENTUALLY COMPLAINED OF DISCOMFORT AND VOIDED 100 ML. PT HAD NO OTHER ISSUES NOTED. PT HAS BEEN SLEEPING WELL T/O SHIFT. WCTM AND BLADDER SCAN AT 0600 HRS. CALL LIGHT IN REACH AND BED ALARM ON.
[2019-06-14 05:26] LABS: BASOPHILS ABSOLUTE AUTO 0.03 K/mm3 (0.00-0.23); BASOPHILS PERCENT AUTO 0 % (0-2); EOSINOPHILS PERCENT AUTO 1 % (0-6); Hematocrit 46.7 % (33.0-51.0); Hemoglobin 13.3 g/dL (11.5-16.0); IMMATURE GRAN PERCENT AUTO 4 % (0-1); LYMPHOCYTES ABSOLUTE AUTO 1.41 K/mm3 (0.84-5.20); LYMPHOCYTES PERCENT AUTO 15 % (21-46); MONOCYTES ABSOLUTE AUTO 0.21 K/mm3 (0.16-1.47); MONOCYTES PERCENT AUTO 2 % (4-13); Mean Corpuscular HGB 23.3 pg (26.0-34.0); Mean Corpuscular HGB Conc 28.5 g/dL (31.5-36.5); Mean Corpuscular Volume 82 fL (80-100); Mean Platelet Volume 10.3 fL (9.1-12.4); NEUTROPHILS ABSOLUTE AUTO 7.57 K/mm3 (1.96-9.15); NEUTROPHILS PERCENT AUTO 78 % (41-73); Platelet Count 471 K/mm3 (150-400); RDW Coefficient Variation 17.5 % (11.7-14.2); RDW Standard Deviation 49.7 fL (35.1-46.3); Red Blood Cell Count 5.72 M/mm3 (3.80-5.20); White Blood Cell Count 9.72 K/mm3 (4.00-11.30)
--- NOTE | 2019-06-14 05:40 | NUR ---
0530 bladder scan showed 355 ml. pt had voided twice. pt reports feeling bloated but states she does not feel the need to use restroom. pt also refused cath. pt states she will call if she changes her mind. kerry
[2019-06-14 05:58] LABS: Albumin, Blood 2.1 g/dL (3.4-5.0); Anion Gap 7 mmol/L (6-16); Blood Urea Nitrogen 3 mg/dL (8-24); Bun/Creatinine Ratio 4.5 (12.0-20.0); CO2, Blood 25 mmol/L (21-32); Calcium, Blood 8.4 mg/dL (8.5-10.1); Chloride, Blood 103 mmol/L (98-108); Creatinine, Blood 0.67 mg/dL (0.40-1.00); Glomerular Filtration Rate >60 (60-); Glucose, Blood 92 mg/dL (70-99); Phosphorus, Blood 2.7 mg/dL (2.5-4.9); Potassium, Blood 3.6 mmol/L (3.5-5.5); Sodium, Blood 135 mmol/L (136-145)
--- NOTE | 2019-06-14 06:27 | NUR ---
loose stool PT HAS NOTED MULTIPLE LOOSE STOOLS BEGINNING 1400 HRS, 06/13/19. PT HAD THREE NOTED LOOSE STOOLS NOC SHIFT. WCTM.
[2019-06-14 10:27] LABS: Source, Urine Catheter
[2019-06-14 10:35] LABS: Appearance, Urine Clear (Clear); Bilirubin, Urine Neg (Neg); Blood, Urine Neg (Neg); Color, Urine Yellow (P-Yellow); Glucose Qualitative, Urine Neg (Neg); Ketones, Urine Neg (Neg); Leukocyte Esterase, Urine 1+ (Neg); Nitrite, Urine Neg (Neg); Protein, Urine Neg (Neg); Specific Gravity, Urine 1.005 (1.003-1.022); Urobilinogen, Urine NORM (Normal); pH, Urine 6.5 (5.0-8.0)
[2019-06-14 10:51] LABS: Bacteria Few /hpf; Red Blood Cells, Urine 0-2 /hpf (0-2); Squamous Epithelial Cells Rare /hpf (Few)
--- NOTE | 2019-06-14 16:08 | NUR ---
SHIFT SUMMARY PATIENT UNABLE TO VOID TODAY. SIDDIQUI PLACED PER DR. ALFARO. SHE TOLERATED THIS WELL. NOTED TO HAVE SOME DIFFICULTY WITH MEMORY RECALL AND FREQUENTLY ASKING "HOW LONG WILL THIS SIDDIQUI BE IN" THIS RN CONTINUES TO EDUCATE ABOUT THE NEED TO FOLLOW UP WITH UROLOGY PER DR. TOMLIN RECOMMENDATION. 1 PERSON ASSIST TO BATHROOM. NOTED TO BE VERY YEASTY IN RIMMA AREA, CREAM ORDERED, APPLIED. ABLE TO MAKE HER NEEDS KNOWN.
--- NOTE | 2019-06-15 05:03 | NUR ---
SHIFT SUMMARY PT HAS HAD NO ACUTE CHANGES THIS SHIFT, NO C/O ANY KIND, PT SLEEPING AT THIS TIME, CALL LIGHT IN REACH, WILL CONT TO MONITOR UNTIL REPORT GIVEN TO DAY RN.
--- NOTE | 2019-06-15 17:09 | NUR ---
SHIFT SUMMARY- PT IS A/O, PLESANT AND COOPERATIVE. SHE HAS SOME INTERMITENT CONFUSION. SHE IS EATING AND DRINKING WELL. SHE AMBULATES TO THE RESTROOM WITH ASSISTANCE AND HAS HAD THREE BM THIS SHIFT. SHE WAS UP IN THE CHAIR FOR SEVERAL HOURS THIS AFTERNOON. SHE HAS EDEMA IN BOTH LEGS AND REPORTS THIS IS NORMAL FOR HER. SHE HAS NO COMPLAINTS OF PAIN
--- NOTE | 2019-06-16 06:11 | NUR ---
SHIFT SUMMARY PT IS A 79 Y/O FEMALE, ADMITTED FOR ACUTE DIVERTICULITIS. PT IS A&O X 1-2, AND CAN BE VERY CONFUSED, AND THIS AM DID NOT KNOW WHERE SHE WAS AND HOW LONG SHE HAD BEEN ADMITTED IN THE HOSPITAL. SHE IS A 1PA WITH A FWW. SHE DENIED ANY COMPLAINTS OF PAIN, NAUSEA OR SOB. VITAL SIGNS STABLE. NO ACUTE CHANGES IN PT CONDITION NOTED. WILL CONTINUE TO MONITOR AND TREAT PER EMAR UNTIL HAND OFF TO DAY SHIFT RN.
== END 2019-06-16 13:40 | disposition home or self-care (01) | DRG 392 ==
LOC: ER 16:48 → MEDS 20:27 → ENPENDDIS 06-14 09:33 → MEDS 06-16 13:40
PROVIDERS: Emergency Medicine; Internal Medicine; Internal Medicine Gastroenterology; ADMIT Family Medicine
DX: K57.80 Diverticulitis of intestine, part unspecified, with perforation and abscess without bleeding (principal); E87.1 Hypo-osmolality and hyponatremia; I10 Essential (primary) hypertension; D45 Polycythemia vera; I48.91 Unspecified atrial fibrillation; I25.2 Old myocardial infarction; I25.10 Atherosclerotic heart disease of native coronary artery without angina pectoris; M81.0 Age-related osteoporosis without current pathological fracture; E03.9 Hypothyroidism, unspecified; Z95.5 Presence of coronary angioplasty implant and graft; J45.909 Unspecified asthma, uncomplicated; F32.9 Major depressive disorder, single episode, unspecified; M40.209 Unspecified kyphosis, site unspecified; F03.90 Unspecified dementia, unspecified severity, without behavioral disturbance, psychotic disturbance, mood disturbance, and anxiety; E78.00 Pure hypercholesterolemia, unspecified
CPT/HCPCS: 0099U; 36415; 51701; 51702; 71045; 74177; 80048; 80053; 80069; 81001; 83605; 83615; 83880; 84439; 84443; 84484; 85025; 87040; 87086; 87804; 93005; 93010; 94640; 94760; 96365-59; 96375-59; 97110; 97116; 97162; 97166; 97530; 97535; 99285-25; A9270; A9270-GY; J0696; J2405; J3010; J3480; Q9967; U0002

== ENCOUNTER → 2019-07-09 | Outpatient (CLI) | payer MEDICARE ==
[~2019-07-09] MED LIST changes: +CEFD300 PO; +DRON2.5 PO; +METO50ER PO; +POTCHL20ER PO
== END | disposition home or self-care (01) ==
LOC: LAB SHORT 18:00 → LAB 18:00 → LAB SHORT 07-10 08:41
DX: R19.7 Diarrhea, unspecified (principal)
CPT/HCPCS: 87015; 87045; 87046; 87205; 87899

== ENCOUNTER → 2019-08-07 | Outpatient (CLI) | payer MEDICARE ==
[2019-08-07 17:33] LABS: Anion Gap 5 mmol/L (6-16); Blood Urea Nitrogen 5 mg/dL (8-24); CO2, Blood 29 mmol/L (21-32); Calcium, Blood 7.9 mg/dL (8.5-10.1); Chloride, Blood 102 mmol/L (98-108); Creatinine, Blood 0.71 mg/dL (0.40-1.00); Glomerular Filtration Rate >60 (60-); Glucose, Blood 87 mg/dL (70-99); Potassium, Blood 3.1 mmol/L (3.5-5.5); Sodium, Blood 136 mmol/L (136-145)
== END ==
LOC: LAB 17:15 → LAB SHORT 17:15
PROVIDERS: Physician Assistant Medical
DX: R60.0 Localized edema (principal)
CPT/HCPCS: 80048

== ENCOUNTER → 2019-09-26 | Outpatient (CLI) | payer MEDICARE ==
[2019-09-26 19:25] LABS: Anion Gap 5 mmol/L (6-16); Blood Urea Nitrogen 7 mg/dL (8-24); Bun/Creatinine Ratio 11.8 (12.0-20.0); CO2, Blood 28 mmol/L (21-32); Calcium, Blood 8.2 mg/dL (8.5-10.1); Chloride, Blood 96 mmol/L (98-108); Creatinine, Blood 0.59 mg/dL (0.40-1.00); Glomerular Filtration Rate >60 (60-); Glucose, Blood 58 mg/dL (70-99); Potassium, Blood 3.8 mmol/L (3.5-5.5); Sodium, Blood 129 mmol/L (136-145)
[2019-09-26 19:34] LABS: Blood Urea Nitrogen 6 mg/dL (8-24); Creatinine, Blood 0.58 mg/dL (0.40-1.00); Glomerular Filtration Rate >60 (60-)
== END | disposition home or self-care (01) ==
LOC: LAB SHORT 18:06 → LAB 18:06
PROVIDERS: Hospitalist; Urology
DX: E87.6 Hypokalemia (principal)
CPT/HCPCS: 80048; 82565; 84520

== ENCOUNTER → 2019-10-09 | Outpatient (CLI) | payer MEDICARE ==
[2019-10-09 13:26] LABS: BASOPHILS ABSOLUTE AUTO 0.05 K/mm3 (0.00-0.23); BASOPHILS PERCENT AUTO 0 % (0-2); EOSINOPHILS ABSOLUTE AUTO 0.18 K/mm3 (0.00-0.68); EOSINOPHILS PERCENT AUTO 1 % (0-6); Hematocrit 48.1 % (33.0-51.0); Hemoglobin 13.2 g/dL (11.5-16.0); Mean Corpuscular HGB 21.8 pg (26.0-34.0); Mean Corpuscular HGB Conc 27.4 g/dL (31.5-36.5); Mean Corpuscular Volume 80 fL (80-100); Mean Platelet Volume 10.1 fL (9.1-12.4); Platelet Count 575 K/mm3 (150-400); RDW Coefficient Variation 15.8 % (11.7-14.2); RDW Standard Deviation 44.3 fL (35.1-46.3); Red Blood Cell Count 6.05 M/mm3 (3.80-5.20); White Blood Cell Count 15.71 K/mm3 (4.00-11.30)
[2019-10-09 13:32] LABS: IMMATURE GRAN ABSOLUTE AUTO 0.22 K/mm3 (0.00-0.10); IMMATURE GRAN PERCENT AUTO 1 % (0-1); LYMPHOCYTES ABSOLUTE AUTO 1.44 K/mm3 (0.84-5.20); LYMPHOCYTES PERCENT AUTO 9 % (21-46); MONOCYTES ABSOLUTE AUTO 0.09 K/mm3 (0.16-1.47); MONOCYTES PERCENT AUTO 1 % (4-13); NEUTROPHILS ABSOLUTE AUTO 13.73 K/mm3 (1.96-9.15); NEUTROPHILS PERCENT AUTO 87 % (41-73)
[2019-10-09 13:46] LABS: Alanine Aminotransfer (ALT/SGP 10 U/L (12-78); Albumin, Blood 2.4 g/dL (3.4-5.0); Albumin/Globulin Ratio 0.6 (0.8-1.8); Alk Phos 108 U/L (50-136); Anion Gap 9 mmol/L (6-16); Aspartate Aminotrans (AST/SGOT 16 U/L (12-37); Bilirubin, Total 0.5 mg/dL (0.1-1.0); Blood Urea Nitrogen 8 mg/dL (8-24); Bun/Creatinine Ratio 12.9 (12.0-20.0); CO2, Blood 26 mmol/L (21-32); Calcium, Blood 8.4 mg/dL (8.5-10.1); Chloride, Blood 96 mmol/L (98-108); Creatinine, Blood 0.62 mg/dL (0.40-1.00); Globulin, Blood 4.1 g/dL (2.2-4.0); Glomerular Filtration Rate >60 (60-); Glucose, Blood 121 mg/dL (70-99); Potassium, Blood 3.8 mmol/L (3.5-5.5); Sodium, Blood 131 mmol/L (136-145); Total Protein, Blood 6.5 g/dL (6.4-8.2)
== END | disposition home or self-care (01) ==
LOC: LAB 11:45 → LAB SHORT 11:45
PROVIDERS: Hospitalist
DX: D45 Polycythemia vera (principal); R60.0 Localized edema
CPT/HCPCS: 80053; 85025

== ENCOUNTER → 2019-10-31 | Outpatient (CLI) | payer MEDICARE ==
[2019-10-31 15:14] LABS: Hematocrit 51.8 % (33.0-51.0); Hemoglobin 14.3 g/dL (11.5-16.0); Mean Corpuscular HGB 21.7 pg (26.0-34.0); Mean Corpuscular HGB Conc 27.6 g/dL (31.5-36.5); Mean Corpuscular Volume 79 fL (80-100); Platelet Count 509 K/mm3 (150-400); RDW Coefficient Variation 18.8 % (11.7-14.2); RDW Standard Deviation 48.1 fL (35.1-46.3); Red Blood Cell Count 6.59 M/mm3 (3.80-5.20); White Blood Cell Count 17.27 K/mm3 (4.00-11.30)
[2019-10-31 16:23] LABS: BASOPHILS ABSOLUTE MAN 0.17 K/mm3 (0.00-0.23); BASOPHILS PERCENT MAN 1 % (0-2); EOSINOPHILS ABSOLUTE MAN 0.86 K/mm3 (0.00-0.68); EOSINOPHILS PERCENT MAN 5 % (0-6); LYMPHOCYTES % ATYPICAL MANUAL 1 % (0-0); LYMPHOCYTES ABSOLUTE MAN 2.24 K/mm3 (0.84-5.20); LYMPHOCYTES PERCENT MAN 12 % (21-46); MONOCYTES ABSOLUTE MAN 0.34 K/mm3 (0.16-1.47); MONOCYTES PERCENT MAN 2 % (4-13); NEUTROPHILS ABSOLUTE MAN 13.64 K/mm3 (1.96-9.15); SEG NEUTROPHILS PERCENT MAN 79 % (41-73); TOTAL CELLS COUNTED 100
== END | disposition home or self-care (01) ==
LOC: LAB SHORT 12:28 → LAB 12:28
PROVIDERS: Internal Medicine Hematology & Oncology
DX: D45 Polycythemia vera (principal)
CPT/HCPCS: 85025

== ENCOUNTER 2019-11-10 21:35 | Emergency (ER) | payer MEDICARE ==
[~2019-11-10] VITALS: Ht 157.5 cm; Wt 69.4 kg
== END 2019-11-11 00:04 | disposition home or self-care (01) ==
LOC: ER 21:35
DX: S30.0XXA Contusion of lower back and pelvis, initial encounter (principal); I10 Essential (primary) hypertension; I48.91 Unspecified atrial fibrillation; I25.2 Old myocardial infarction; E03.9 Hypothyroidism, unspecified; I25.10 Atherosclerotic heart disease of native coronary artery without angina pectoris; Z95.5 Presence of coronary angioplasty implant and graft; Z88.0 Allergy status to penicillin; Z88.1 Allergy status to other antibiotic agents; Z79.899 Other long term (current) drug therapy; Z79.01 Long term (current) use of anticoagulants; Z79.02 Long term (current) use of antithrombotics/antiplatelets; W18.30XA Fall on same level, unspecified, initial encounter
CPT/HCPCS: 72100; 72220; 96374; 96375; 99283-25; A9270; J2405; J3010

== ENCOUNTER → 2019-11-19 | Outpatient (CLI) | payer MEDICARE ==
[2019-11-19 12:20] LABS: BASOPHILS ABSOLUTE AUTO 0.06 K/mm3 (0.00-0.23); BASOPHILS PERCENT AUTO 0 % (0-2); EOSINOPHILS ABSOLUTE AUTO 0.24 K/mm3 (0.00-0.68); EOSINOPHILS PERCENT AUTO 2 % (0-6); Hematocrit 47.1 % (33.0-51.0); Hemoglobin 13.2 g/dL (11.5-16.0); IMMATURE GRAN ABSOLUTE AUTO 0.35 K/mm3 (0.00-0.10); IMMATURE GRAN PERCENT AUTO 3 % (0-1); LYMPHOCYTES ABSOLUTE AUTO 1.68 K/mm3 (0.84-5.20); LYMPHOCYTES PERCENT AUTO 12 % (21-46); MONOCYTES ABSOLUTE AUTO 0.27 K/mm3 (0.16-1.47); MONOCYTES PERCENT AUTO 2 % (4-13); Mean Corpuscular HGB 21.6 pg (26.0-34.0); Mean Corpuscular Volume 77 fL (80-100); NEUTROPHILS PERCENT AUTO 82 % (41-73); Platelet Count 345 K/mm3 (150-400); RDW Coefficient Variation 18.9 % (11.7-14.2); RDW Standard Deviation 49.8 fL (35.1-46.3)
[2019-11-19 13:13] LABS: Albumin, Blood 2.4 g/dL (3.4-5.0); Albumin/Globulin Ratio 0.5 (0.8-1.8); Bilirubin, Total 0.8 mg/dL (0.1-1.0); Bun/Creatinine Ratio 16.6 (12.0-20.0); Calcium, Blood 8.6 mg/dL (8.5-10.1); Creatinine, Blood 0.97 mg/dL (0.40-1.00); Globulin, Blood 4.5 g/dL (2.2-4.0); Total Protein, Blood 6.9 g/dL (6.4-8.2)
== END | disposition home or self-care (01) ==
LOC: LAB SHORT 10:50 → LAB 10:50
PROVIDERS: Internal Medicine Hematology & Oncology
DX: D75.1 Secondary polycythemia (principal)
CPT/HCPCS: 80053; 85025

== ENCOUNTER → 2019-11-21 | Outpatient (CLI) | payer MEDICARE | END | disposition home or self-care (01) | LOC: LAB 15:24 → LAB SHORT 15:24 | DX: R30.9 Painful micturition, unspecified (principal); N39.0 Urinary tract infection, site not specified | CPT/HCPCS: 87077; 87086; 87186 ==

== ENCOUNTER → 2019-11-28 | Outpatient (CLI) | payer MEDICARE ==
[2019-11-28 17:35] LABS: Source, Urine Clean Catch
[2019-11-28 18:55] LABS: Bilirubin, Urine Neg (Neg); Blood, Urine Neg (Neg); Glucose Qualitative, Urine Neg (Neg); Ketones, Urine Neg (Neg); Leukocyte Esterase, Urine 2+ (Neg); Nitrite, Urine Pos (Neg); Protein, Urine Neg (Neg); Urobilinogen, Urine NORM (Normal)
[2019-11-28 19:07] LABS: Appearance, Urine Clear (Clear); Color, Urine Yellow (P-Yellow); White Blood Cells, Urine 25-50 /hpf (0-5)
[2019-11-28 19:08] LABS: Bacteria Many /hpf; Red Blood Cells, Urine 0-2 /hpf (0-2); Squamous Epithelial Cells Rare /hpf (Few)
== END | disposition home or self-care (01) ==
LOC: LAB 17:33 → LAB SHORT 17:33
PROVIDERS: Hospitalist
DX: N39.0 Urinary tract infection, site not specified (principal)
CPT/HCPCS: 81001; 87077; 87086; 87186

== ENCOUNTER → 2019-12-18 | Outpatient (CLI) | payer MEDICARE ==
[2019-12-18 19:51] LABS: BASOPHILS ABSOLUTE AUTO 0.09 K/mm3 (0.00-0.23); BASOPHILS PERCENT AUTO 1 % (0-2); EOSINOPHILS ABSOLUTE AUTO 0.12 K/mm3 (0.00-0.68); EOSINOPHILS PERCENT AUTO 1 % (0-6); Hematocrit 50.7 % (33.0-51.0); Hemoglobin 14.2 g/dL (11.5-16.0); IMMATURE GRAN PERCENT AUTO 2 % (0-1); LYMPHOCYTES ABSOLUTE AUTO 1.21 K/mm3 (0.84-5.20); LYMPHOCYTES PERCENT AUTO 11 % (21-46); MONOCYTES ABSOLUTE AUTO 0.16 K/mm3 (0.16-1.47); MONOCYTES PERCENT AUTO 2 % (4-13); Mean Corpuscular HGB 22.3 pg (26.0-34.0); Mean Corpuscular Volume 80 fL (80-100); Mean Platelet Volume 9.3 fL (9.1-12.4); NEUTROPHILS ABSOLUTE AUTO 8.88 K/mm3 (1.96-9.15); NEUTROPHILS PERCENT AUTO 83 % (41-73); Platelet Count 346 K/mm3 (150-400); RDW Standard Deviation 57.6 fL (35.1-46.3); Red Blood Cell Count 6.38 M/mm3 (3.80-5.20); White Blood Cell Count 10.66 K/mm3 (4.00-11.30)
[2019-12-18 20:51] LABS: Alanine Aminotransfer (ALT/SGP 11 U/L (12-78); Albumin, Blood 2.2 g/dL (3.4-5.0); Albumin/Globulin Ratio 0.5 (0.8-1.8); Alk Phos 132 U/L (50-136); Anion Gap 7 mmol/L (6-16); Aspartate Aminotrans (AST/SGOT 11 U/L (12-37); Bilirubin, Total 0.5 mg/dL (0.1-1.0); Blood Urea Nitrogen 9 mg/dL (8-24); Bun/Creatinine Ratio 12.3 (12.0-20.0); CO2, Blood 29 mmol/L (21-32); Calcium, Blood 8.3 mg/dL (8.5-10.1); Chloride, Blood 99 mmol/L (98-108); Creatinine, Blood 0.73 mg/dL (0.40-1.00); Globulin, Blood 4.2 g/dL (2.2-4.0); Glomerular Filtration Rate >60 (60-); Glucose, Blood 91 mg/dL (70-99); Potassium, Blood 3.5 mmol/L (3.5-5.5); Sodium, Blood 135 mmol/L (136-145); Total Protein, Blood 6.4 g/dL (6.4-8.2)
[2019-12-19 11:27] LABS: C-REACTIVE PROTEIN, EXT RANGE 2.09 mg/dL (0.000-0.300); Thyroid Stimulating Hormone 6.03 uIU/mL (0.360-4.800)
== END | disposition home or self-care (01) ==
LOC: LAB SHORT 18:03 → LAB 18:03
PROVIDERS: Hospitalist; Internal Medicine Hematology & Oncology
DX: I10 Essential (primary) hypertension (principal); E03.9 Hypothyroidism, unspecified; M75.82 Other shoulder lesions, left shoulder; D45 Polycythemia vera
CPT/HCPCS: 80053; 84443; 85025; 85651; 86140

== ENCOUNTER → 2020-01-22 | Outpatient (CLI) | payer MEDICARE ==
[~2020-01-22] MED LIST changes: +ACET500 PO; +ALUM-MAG HYDROX30 ML PO; -ARIP20 PO; -ATOR40TA PO; -BREO ELLIPTA 11 EACH INH; +DICLOFENAC SOD100 G1 TOP; +ESTRADIOL42.5 GM VAG; +FURO80 PO; +NYAMYC TOP; +ONDA8 PO; -POTCHL20ER PO; +SPIR25 PO; +TRAM50 PO; +TRIDERM28.4 GM TOP
[2020-01-22 16:08] LABS: BASOPHILS ABSOLUTE AUTO 0.06 K/mm3 (0.00-0.23); BASOPHILS PERCENT AUTO 0 % (0-2); EOSINOPHILS ABSOLUTE AUTO 0.08 K/mm3 (0.00-0.68); EOSINOPHILS PERCENT AUTO 1 % (0-6); Hematocrit 48.1 % (33.0-51.0); Hemoglobin 14.3 g/dL (11.5-16.0); IMMATURE GRAN ABSOLUTE AUTO 0.22 K/mm3 (0.00-0.10); IMMATURE GRAN PERCENT AUTO 1 % (0-1); LYMPHOCYTES ABSOLUTE AUTO 0.99 K/mm3 (0.84-5.20); LYMPHOCYTES PERCENT AUTO 6 % (21-46); MONOCYTES PERCENT AUTO 1 % (4-13); Mean Corpuscular HGB 23.9 pg (26.0-34.0); Mean Corpuscular HGB Conc 29.7 g/dL (31.5-36.5); Mean Corpuscular Volume 80 fL (80-100); Mean Platelet Volume 9.8 fL (9.1-12.4); NEUTROPHILS PERCENT AUTO 91 % (41-73); Platelet Count 357 K/mm3 (150-400); RDW Coefficient Variation 19.3 % (11.7-14.2); RDW Standard Deviation 54.5 fL (35.1-46.3); Red Blood Cell Count 5.99 M/mm3 (3.80-5.20); White Blood Cell Count 17.25 K/mm3 (4.00-11.30)
[2020-01-22 16:31] LABS: Alanine Aminotransfer (ALT/SGP 7 U/L (12-78); Albumin, Blood 2.2 g/dL (3.4-5.0); Albumin/Globulin Ratio 0.5 (0.8-1.8); Alk Phos 111 U/L (50-136); Anion Gap 10 mmol/L (6-16); Aspartate Aminotrans (AST/SGOT 16 U/L (12-37); Bilirubin, Total 0.6 mg/dL (0.1-1.0); Blood Urea Nitrogen 11 mg/dL (8-24); Bun/Creatinine Ratio 12.5 (12.0-20.0); CO2, Blood 24 mmol/L (21-32); Calcium, Blood 8.5 mg/dL (8.5-10.1); Chloride, Blood 94 mmol/L (98-108); Creatinine, Blood 0.88 mg/dL (0.40-1.00); Globulin, Blood 4.3 g/dL (2.2-4.0); Glomerular Filtration Rate >60 (60-); Glucose, Blood 103 mg/dL (70-99); Potassium, Blood 3.4 mmol/L (3.5-5.5); Sodium, Blood 128 mmol/L (136-145); Total Protein, Blood 6.5 g/dL (6.4-8.2)
[2020-01-22 19:02] LABS: Source, Urine Catheter
[2020-01-22 20:05] LABS: Appearance, Urine Turbid (Clear); Bilirubin, Urine Neg (Neg); Blood, Urine 4+ (Neg); Color, Urine Yellow (P-Yellow); Glucose Qualitative, Urine Neg (Neg); Ketones, Urine 1+ (Neg); Leukocyte Esterase, Urine 3+ (Neg); Nitrite, Urine Pos (Neg); Protein, Urine 3+ (Neg); Urobilinogen, Urine NORM (Normal)
[2020-01-22 20:23] LABS: White Blood Cells, Urine TNTC /hpf (0-5)
[2020-01-22 20:24] LABS: Amorphous Light (0-Heavy); Bacteria Mod /hpf; Squamous Epithelial Cells Few /hpf (Few); Transitional Epithelial Cells Few /hpf (0-Rare)
== END ==
LOC: LAB 15:57 → LAB SHORT 15:57
PROVIDERS: Hospitalist; Internal Medicine Hematology & Oncology
DX: D45 Polycythemia vera (principal)
CPT/HCPCS: 80053; 81001; 85025; 85379; 87077; 87086; 87186

== ENCOUNTER → 2020-02-05 | Outpatient (CLI) | payer MEDICARE ==
[2020-02-05 10:29] LABS: BASOPHILS ABSOLUTE AUTO 0.02 K/mm3 (0.00-0.23); BASOPHILS PERCENT AUTO 0 % (0-2); EOSINOPHILS ABSOLUTE AUTO 0.17 K/mm3 (0.00-0.68); EOSINOPHILS PERCENT AUTO 2 % (0-6); Hematocrit 46.8 % (33.0-51.0); Hemoglobin 13.3 g/dL (11.5-16.0); IMMATURE GRAN PERCENT AUTO 2 % (0-1); LYMPHOCYTES ABSOLUTE AUTO 0.98 K/mm3 (0.84-5.20); LYMPHOCYTES PERCENT AUTO 10 % (21-46); MONOCYTES ABSOLUTE AUTO 0.07 K/mm3 (0.16-1.47); MONOCYTES PERCENT AUTO 1 % (4-13); Mean Corpuscular HGB 24.2 pg (26.0-34.0); Mean Corpuscular HGB Conc 28.4 g/dL (31.5-36.5); Mean Corpuscular Volume 85 fL (80-100); Mean Platelet Volume 9.4 fL (9.1-12.4); NEUTROPHILS ABSOLUTE AUTO 8.42 K/mm3 (1.96-9.15); NEUTROPHILS PERCENT AUTO 86 % (41-73); Platelet Count 294 K/mm3 (150-400); RDW Coefficient Variation 19.1 % (11.7-14.2); White Blood Cell Count 9.86 K/mm3 (4.00-11.30)
[2020-02-05 10:50] LABS: Alanine Aminotransfer (ALT/SGP 11 U/L (12-78); Albumin/Globulin Ratio 0.5 (0.8-1.8); Alk Phos 96 U/L (50-136); Anion Gap 6 mmol/L (6-16); Aspartate Aminotrans (AST/SGOT 17 U/L (12-37); Bilirubin, Total 0.4 mg/dL (0.1-1.0); Blood Urea Nitrogen 8 mg/dL (8-24); Bun/Creatinine Ratio 11.6 (12.0-20.0); CO2, Blood 29 mmol/L (21-32); Calcium, Blood 8.3 mg/dL (8.5-10.1); Chloride, Blood 99 mmol/L (98-108); Creatinine, Blood 0.69 mg/dL (0.40-1.00); Globulin, Blood 4.2 g/dL (2.2-4.0); Glomerular Filtration Rate >60 (60-); Glucose, Blood 128 mg/dL (70-99); Potassium, Blood 3.4 mmol/L (3.5-5.5); Sodium, Blood 134 mmol/L (136-145); Total Protein, Blood 6.2 g/dL (6.4-8.2)
== END ==
LOC: LAB SHORT 10:17 → LAB 10:17
PROVIDERS: Hospitalist
DX: K57.92 Diverticulitis of intestine, part unspecified, without perforation or abscess without bleeding (principal); N39.0 Urinary tract infection, site not specified; D45 Polycythemia vera
CPT/HCPCS: 80053; 85025

== ENCOUNTER → 2020-02-06 | Outpatient (CLI) | payer MEDICARE ==
[~2020-02-06] MED LIST changes: -ACET500 PO; -ALUM-MAG HYDROX30 ML PO; +ARIP20 PO; +ATOR40TA PO; +BREO ELLIPTA 11 EACH INH; -DICLOFENAC SOD100 G1 TOP; -ESTRADIOL42.5 GM VAG; -FURO80 PO; -NYAMYC TOP; -ONDA8 PO; +POTCHL20ER PO; -SPIR25 PO; -TRAM50 PO; -TRIDERM28.4 GM TOP
[2020-02-06 13:38] LABS: Source, Urine Catheter
[2020-02-06 15:10] LABS: Appearance, Urine Cloudy (Clear); Bilirubin, Urine Neg (Neg); Blood, Urine 5+ (Neg); Color, Urine Yellow (P-Yellow); Glucose Qualitative, Urine Neg (Neg); Ketones, Urine 1+ (Neg); Leukocyte Esterase, Urine 3+ (Neg); Nitrite, Urine Neg (Neg); Protein, Urine 2+ (Neg); Specific Gravity, Urine 1.015 (1.003-1.022); Urobilinogen, Urine NORM (Normal)
[2020-02-06 15:31] LABS: Bacteria Many /hpf; Hyaline Casts 0-2 /lpf (0-2); Red Blood Cells, Urine TNTC /hpf (0-2); Squamous Epithelial Cells Few /hpf (Few); White Blood Cells, Urine TNTC /hpf (0-5)
== END | disposition home or self-care (01) ==
LOC: LAB HH 13:35
PROVIDERS: Hospitalist
DX: N39.0 Urinary tract infection, site not specified (principal)
CPT/HCPCS: 81001

== ENCOUNTER → 2020-02-18 | Outpatient (CLI) | payer MEDICARE ==
[~2020-02-18] MED LIST changes: +ACET500 PO; +ALUM-MAG HYDROX30 ML PO; -ARIP20 PO; -ATOR40TA PO; -BREO ELLIPTA 11 EACH INH; +DICLOFENAC SOD100 G1 TOP; +ESTRADIOL42.5 GM VAG; +FURO80 PO; +NYAMYC TOP; +ONDA8 PO; -POTCHL20ER PO; +SPIR25 PO; +TRAM50 PO; +TRIDERM28.4 GM TOP
[2020-02-18 11:02] LABS: BASOPHILS ABSOLUTE AUTO 0.07 K/mm3 (0.00-0.23); BASOPHILS PERCENT AUTO 1 % (0-2); EOSINOPHILS ABSOLUTE AUTO 0.27 K/mm3 (0.00-0.68); EOSINOPHILS PERCENT AUTO 2 % (0-6); Hematocrit 44.4 % (33.0-51.0); Hemoglobin 12.8 g/dL (11.5-16.0); IMMATURE GRAN ABSOLUTE AUTO 0.19 K/mm3 (0.00-0.10); IMMATURE GRAN PERCENT AUTO 2 % (0-1); LYMPHOCYTES ABSOLUTE AUTO 1.19 K/mm3 (0.84-5.20); LYMPHOCYTES PERCENT AUTO 9 % (21-46); MONOCYTES ABSOLUTE AUTO 0.06 K/mm3 (0.16-1.47); MONOCYTES PERCENT AUTO 1 % (4-13); Mean Corpuscular HGB Conc 28.8 g/dL (31.5-36.5); Mean Corpuscular Volume 87 fL (80-100); Mean Platelet Volume 9.3 fL (9.1-12.4); NEUTROPHILS ABSOLUTE AUTO 11.06 K/mm3 (1.96-9.15); NEUTROPHILS PERCENT AUTO 86 % (41-73); Platelet Count 252 K/mm3 (150-400); RDW Coefficient Variation 18.6 % (11.7-14.2); RDW Standard Deviation 58.6 fL (35.1-46.3); Red Blood Cell Count 5.13 M/mm3 (3.80-5.20); White Blood Cell Count 12.84 K/mm3 (4.00-11.30)
[2020-02-18 11:21] LABS: Alanine Aminotransfer (ALT/SGP 8 U/L (12-78); Albumin, Blood 1.8 g/dL (3.4-5.0); Albumin/Globulin Ratio 0.5 (0.8-1.8); Alk Phos 99 U/L (50-136); Anion Gap 6 mmol/L (6-16); Aspartate Aminotrans (AST/SGOT 12 U/L (12-37); Bilirubin, Total 0.4 mg/dL (0.1-1.0); Blood Urea Nitrogen 8 mg/dL (8-24); Bun/Creatinine Ratio 10.9 (12.0-20.0); CO2, Blood 30 mmol/L (21-32); Calcium, Blood 7.9 mg/dL (8.5-10.1); Chloride, Blood 101 mmol/L (98-108); Creatinine, Blood 0.73 mg/dL (0.40-1.00); Globulin, Blood 3.7 g/dL (2.2-4.0); Glomerular Filtration Rate >60 (60-); Glucose, Blood 127 mg/dL (70-99); Potassium, Blood 3.3 mmol/L (3.5-5.5); Sodium, Blood 137 mmol/L (136-145); Total Protein, Blood 5.5 g/dL (6.4-8.2)
== END | disposition home or self-care (01) ==
LOC: LAB 09:10 → LAB SHORT 09:10
PROVIDERS: Internal Medicine Hematology & Oncology
DX: D45 Polycythemia vera (principal)
CPT/HCPCS: 80053; 85025

== ENCOUNTER → 2020-02-27 | Outpatient (CLI) | payer MEDICARE ==
[2020-02-27 10:58] LABS: Anion Gap 10 mmol/L (6-16); Blood Urea Nitrogen 7 mg/dL (8-24); Bun/Creatinine Ratio 12.8 (12.0-20.0); CO2, Blood 26 mmol/L (21-32); Calcium, Blood 7.9 mg/dL (8.5-10.1); Chloride, Blood 101 mmol/L (98-108); Creatinine, Blood 0.55 mg/dL (0.40-1.00); Glomerular Filtration Rate >60 (60-); Glucose, Blood 93 mg/dL (70-99); Potassium, Blood 2.6 mmol/L (3.5-5.5); Sodium, Blood 137 mmol/L (136-145)
== END | disposition home or self-care (01) ==
LOC: LAB SHORT 07:50 → LAB 07:50
PROVIDERS: Hospitalist
DX: R60.9 Edema, unspecified (principal)
CPT/HCPCS: 80048

== ENCOUNTER → 2020-03-12 | Outpatient (CLI) | payer MEDICARE ==
[2020-03-12 13:52] LABS: Anion Gap 7 mmol/L (6-16); Blood Urea Nitrogen 12 mg/dL (8-24); CO2, Blood 28 mmol/L (21-32); Calcium, Blood 8.3 mg/dL (8.5-10.1); Chloride, Blood 100 mmol/L (98-108); Creatinine, Blood 0.67 mg/dL (0.40-1.00); Glomerular Filtration Rate >60 (60-); Glucose, Blood 90 mg/dL (70-99); Magnesium, Blood 1.6 mg/dL (1.6-2.4); Potassium, Blood 3.3 mmol/L (3.5-5.5); Sodium, Blood 135 mmol/L (136-145)
== END | disposition home or self-care (01) ==
LOC: LAB 10:22 → LAB SHORT 10:22
PROVIDERS: Internal Medicine
DX: I50.9 Heart failure, unspecified (principal); E87.6 Hypokalemia; E03.9 Hypothyroidism, unspecified
CPT/HCPCS: 80048; 83735; 83880; 84443

== ENCOUNTER → 2020-04-01 | Outpatient (CLI) | payer MEDICARE ==
[2020-04-02 10:19] LABS: Source, Urine Catheter
[2020-04-02 14:08] LABS: Appearance, Urine Clear (Clear); Bilirubin, Urine Neg (Neg); Blood, Urine 1+ (Neg); Color, Urine Yellow (P-Yellow); Glucose Qualitative, Urine Neg (Neg); Ketones, Urine Neg (Neg); Leukocyte Esterase, Urine 1+ (Neg); Nitrite, Urine Neg (Neg); Protein, Urine Neg (Neg); Specific Gravity, Urine 1.015 (1.003-1.022); Urobilinogen, Urine NORM (Normal)
[2020-04-02 15:24] LABS: Red Blood Cells, Urine 0-2 /hpf (0-2); Squamous Epithelial Cells Rare /hpf (Few)
[2020-04-02 15:25] LABS: Bacteria Not Seen /hpf; Granular Casts Rare /lpf (0); Hyaline Casts Rare /lpf (0-2)
== END ==
LOC: LAB SHORT 15:30 → PLD 15:30 → LAB 15:30
PROVIDERS: Urology
DX: N39.0 Urinary tract infection, site not specified (principal)
CPT/HCPCS: 81001; 87077; 87086; 87186

== ENCOUNTER → 2020-04-20 | Outpatient (CLI) | payer MEDICARE ==
[2020-04-20 11:52] LABS: BASOPHILS ABSOLUTE AUTO 0.07 K/mm3 (0.00-0.23); BASOPHILS PERCENT AUTO 0 % (0-2); EOSINOPHILS PERCENT AUTO 1 % (0-6); Hematocrit 49.3 % (33.0-51.0); Hemoglobin 14.6 g/dL (11.5-16.0); IMMATURE GRAN ABSOLUTE AUTO 0.37 K/mm3 (0.00-0.10); IMMATURE GRAN PERCENT AUTO 2 % (0-1); LYMPHOCYTES ABSOLUTE AUTO 1.31 K/mm3 (0.84-5.20); LYMPHOCYTES PERCENT AUTO 7 % (21-46); MONOCYTES ABSOLUTE AUTO 0.45 K/mm3 (0.16-1.47); MONOCYTES PERCENT AUTO 3 % (4-13); Mean Corpuscular HGB 26.6 pg (26.0-34.0); Mean Corpuscular HGB Conc 29.6 g/dL (31.5-36.5); Mean Corpuscular Volume 90 fL (80-100); Mean Platelet Volume 11.2 fL (9.1-12.4); NEUTROPHILS ABSOLUTE AUTO 15.38 K/mm3 (1.96-9.15); NEUTROPHILS PERCENT AUTO 87 % (41-73); Platelet Count 358 K/mm3 (150-400); RDW Standard Deviation 54.9 fL (35.1-46.3); Red Blood Cell Count 5.48 M/mm3 (3.80-5.20); White Blood Cell Count 17.68 K/mm3 (4.00-11.30)
[2020-04-20 11:59] LABS: Albumin, Blood 2.5 g/dL (3.4-5.0); Albumin/Globulin Ratio 0.5 (0.8-1.8); Bilirubin, Total 0.7 mg/dL (0.1-1.0); Bun/Creatinine Ratio 22.5 (12.0-20.0); Creatinine, Blood 1.38 mg/dL (0.40-1.00); Globulin, Blood 4.7 g/dL (2.2-4.0); Potassium, Blood 4.9 mmol/L (3.5-5.5); Total Protein, Blood 7.2 g/dL (6.4-8.2)
== END | disposition home or self-care (01) ==
LOC: LAB 10:47 → LAB SHORT 10:47
PROVIDERS: Internal Medicine Hematology & Oncology
DX: D45 Polycythemia vera (principal)
CPT/HCPCS: 80053; 85025

== ENCOUNTER → 2020-04-22 | Outpatient (CLI) | payer MEDICARE ==
[2020-04-22 19:12] LABS: Source, Urine Catheter
[2020-04-22 20:02] LABS: Appearance, Urine Cloudy (Clear); Bilirubin, Urine Neg (Neg); Blood, Urine 5+ (Neg); Color, Urine Yellow (P-Yellow); Glucose Qualitative, Urine Neg (Neg); Ketones, Urine Neg (Neg); Leukocyte Esterase, Urine 3+ (Neg); Nitrite, Urine Neg (Neg); Protein, Urine 2+ (Neg); Specific Gravity, Urine 1.015 (1.003-1.022); Urobilinogen, Urine NORM (Normal)
[2020-04-22 20:11] LABS: Bacteria Many /hpf; Squamous Epithelial Cells Not Seen /hpf (Few); White Blood Cells, Urine TNTC /hpf (0-5)
== END | disposition home or self-care (01) ==
LOC: LAB SHORT 19:10 → LAB 19:10
PROVIDERS: Hospitalist
DX: N39.0 Urinary tract infection, site not specified (principal)
CPT/HCPCS: 81001; 87077; 87086; 87186

== ENCOUNTER → 2020-04-28 | Outpatient (CLI) | payer MEDICARE ==
[2020-04-28 14:59] LABS: Hematocrit 48.2 % (33.0-51.0); Hemoglobin 14.2 g/dL (11.5-16.0); Mean Corpuscular HGB 27.2 pg (26.0-34.0); Mean Corpuscular HGB Conc 29.5 g/dL (31.5-36.5); Mean Corpuscular Volume 92 fL (80-100); Platelet Count 406 K/mm3 (150-400); RDW Standard Deviation 61.2 fL (35.1-46.3); Red Blood Cell Count 5.23 M/mm3 (3.80-5.20); White Blood Cell Count 13.49 K/mm3 (4.00-11.30)
[2020-04-28 15:23] LABS: Bun/Creatinine Ratio 24.8 (12.0-20.0); Calcium, Blood 8.5 mg/dL (8.5-10.1); Creatinine, Blood 1.37 mg/dL (0.40-1.00); Potassium, Blood 4.9 mmol/L (3.5-5.5)
[2020-04-28 15:27] LABS: BASOPHILS PERCENT MAN 0 % (0-2); EOSINOPHILS PERCENT MAN 0 % (0-6); LYMPHOCYTES ABSOLUTE MAN 2.96 K/mm3 (0.84-5.20); LYMPHOCYTES PERCENT MAN 22 % (21-46); MONOCYTES ABSOLUTE MAN 0.26 K/mm3 (0.16-1.47); MONOCYTES PERCENT MAN 2 % (4-13); NEUTROPHILS ABSOLUTE MAN 10.25 K/mm3 (1.96-9.15); SEG NEUTROPHILS PERCENT MAN 76 % (41-73); TOTAL CELLS COUNTED 100
[2020-04-28 15:33] LABS: Thyroid Stimulating Hormone 0.305 uIU/mL (0.360-4.800)
== END | disposition home or self-care (01) ==
LOC: LAB 13:29 → LAB SHORT 13:29
PROVIDERS: Hospitalist
DX: E87.1 Hypo-osmolality and hyponatremia (principal)
CPT/HCPCS: 80048; 84443; 85025

== ENCOUNTER → 2020-05-21 | Outpatient (CLI) | payer MEDICARE ==
[2020-05-21 12:13] LABS: Hematocrit 44.2 % (33.0-51.0); Hemoglobin 13.6 g/dL (11.5-16.0); Mean Corpuscular HGB 28.3 pg (26.0-34.0); Mean Corpuscular HGB Conc 30.8 g/dL (31.5-36.5); Mean Corpuscular Volume 92 fL (80-100); Mean Platelet Volume 11.4 fL (9.1-12.4); Platelet Count 211 K/mm3 (150-400); RDW Coefficient Variation 20.5 % (11.7-14.2); RDW Standard Deviation 66.1 fL (35.1-46.3); Red Blood Cell Count 4.81 M/mm3 (3.80-5.20); White Blood Cell Count 8.51 K/mm3 (4.00-11.30)
[2020-05-21 12:46] LABS: Alanine Aminotransfer (ALT/SGP 9 U/L (12-78); Albumin, Blood 2.1 g/dL (3.4-5.0); Albumin/Globulin Ratio 0.6 (0.8-1.8); Alk Phos 80 U/L (50-136); Anion Gap 6 mmol/L (6-16); Aspartate Aminotrans (AST/SGOT 11 U/L (12-37); Bilirubin, Total 0.5 mg/dL (0.1-1.0); Blood Urea Nitrogen 18 mg/dL (8-24); Bun/Creatinine Ratio 20.7 (12.0-20.0); CO2, Blood 25 mmol/L (21-32); Calcium, Blood 8.3 mg/dL (8.5-10.1); Chloride, Blood 102 mmol/L (98-108); Cholesterol 63 mg/dL (50-200); Creatinine, Blood 0.87 mg/dL (0.40-1.00); Free Thyroxine 2.12 ng/dL (0.70-1.60); Globulin, Blood 3.6 g/dL (2.2-4.0); Glomerular Filtration Rate >60 (60-); Glucose, Blood 79 mg/dL (70-99); HDL Cholesterol 32 mg/dL (>39); LDL/HDL RATIO 0.6; Low Density Lipoprotein Chol 20 mg/dL (0-110); Sodium, Blood 133 mmol/L (136-145); Thyroid Stimulating Hormone 0.138 uIU/mL (0.360-4.800); Total Protein, Blood 5.7 g/dL (6.4-8.2); Triglycerides 57 mg/dL (30-160); Very Low Density Lipoprot Chol 11 mg/dL (6-32)
[2020-05-21 13:30] LABS: BASOPHILS PERCENT MAN 0 % (0-2); EOSINOPHILS PERCENT MAN 0 % (0-6); LYMPHOCYTES ABSOLUTE MAN 0.68 K/mm3 (0.84-5.20); LYMPHOCYTES PERCENT MAN 8 % (21-46); MONOCYTES ABSOLUTE MAN 0.68 K/mm3 (0.16-1.47); MONOCYTES PERCENT MAN 8 % (4-13); MYELOCYTE ABSOLUTE MAN 0.08 K/mm3 (0.00-0.00); MYELOCYTE PERCENT MAN 1 % (0-0); NEUTROPHILS ABSOLUTE MAN 7.06 K/mm3 (1.96-9.15); SEG NEUTROPHILS PERCENT MAN 83 % (41-73); TOTAL CELLS COUNTED 100
== END | disposition home or self-care (01) ==
LOC: PLD 09:30 → LAB SHORT 09:30
PROVIDERS: Hospitalist
DX: I10 Essential (primary) hypertension (principal); E78.5 Hyperlipidemia, unspecified; E03.9 Hypothyroidism, unspecified
CPT/HCPCS: 80053; 80061; 84439; 84443; 85025

== ENCOUNTER 2020-06-10 15:57 | Emergency (ER) | payer MEDICARE ==
[~2020-06-10] VITALS: Ht 160 cm; Wt 63.5 kg
[2020-06-10 17:35] LABS: Source, Urine Catheter
[2020-06-10 17:51] LABS: Appearance, Urine Clear (Clear); Bilirubin, Urine Neg (Neg); Blood, Urine 1+ (Neg); Color, Urine Yellow (P-Yellow); Glucose Qualitative, Urine Neg (Neg); Ketones, Urine Neg (Neg); Leukocyte Esterase, Urine 3+ (Neg); Nitrite, Urine Neg (Neg); Protein, Urine Neg (Neg); Urobilinogen, Urine NORM (Normal)
[2020-06-10 18:05] LABS: Bacteria Mod /hpf; Squamous Epithelial Cells Few /hpf (Few); Transitional Epithelial Cells Few /hpf (0-Rare); White Blood Cells, Urine TNTC /hpf (0-5)
[2020-06-10] MEDS ORDERED: CEFD300 PO (18:13)
== END 2020-06-10 20:35 | disposition home or self-care (01) ==
LOC: ER 15:57
PROVIDERS: Emergency Medicine
DX: N39.0 Urinary tract infection, site not specified (principal); Z96.0 Presence of urogenital implants; Z79.899 Other long term (current) drug therapy
CPT/HCPCS: 36415; 51702; 71046; 81001; 83605; 87077; 87086; 87186; 96365-59; 99284-25; J0696; J7030

== ENCOUNTER → 2020-06-10 | Outpatient (CLI) | payer MEDICARE ==
[~2020-06-10] MED LIST changes: -ACET500 PO; -ALUM-MAG HYDROX30 ML PO; +ARIP20 PO; +ATOR40TA PO; +BREO ELLIPTA 11 EACH INH; -DICLOFENAC SOD100 G1 TOP; -ESTRADIOL42.5 GM VAG; -FURO80 PO; -NYAMYC TOP; -ONDA8 PO; +POTCHL20ER PO; -SPIR25 PO; -TRAM50 PO; -TRIDERM28.4 GM TOP
[2020-06-10 13:28] LABS: Hematocrit 45.5 % (33.0-51.0); Hemoglobin 14.4 g/dL (11.5-16.0); Mean Corpuscular HGB 29.3 pg (26.0-34.0); Mean Corpuscular HGB Conc 31.6 g/dL (31.5-36.5); Mean Corpuscular Volume 93 fL (80-100); Mean Platelet Volume 11.3 fL (9.1-12.4); Platelet Count 248 K/mm3 (150-400); RDW Coefficient Variation 19.2 % (11.7-14.2); RDW Standard Deviation 65.1 fL (35.1-46.3); Red Blood Cell Count 4.91 M/mm3 (3.80-5.20); White Blood Cell Count 11.68 K/mm3 (4.00-11.30)
[2020-06-10 13:50] LABS: Anion Gap 9 mmol/L (6-16); Blood Urea Nitrogen 11 mg/dL (8-24); CO2, Blood 24 mmol/L (21-32); Calcium, Blood 8.4 mg/dL (8.5-10.1); Chloride, Blood 102 mmol/L (98-108); Creatinine, Blood 0.78 mg/dL (0.40-1.00); Glomerular Filtration Rate >60 (60-); Glucose, Blood 111 mg/dL (70-99); Potassium, Blood 3.8 mmol/L (3.5-5.5); Sodium, Blood 135 mmol/L (136-145)
[2020-06-10 14:05] LABS: BASOPHILS PERCENT MAN 0 % (0-2); EOSINOPHILS PERCENT MAN 0 % (0-6); LYMPHOCYTES ABSOLUTE MAN 0.23 K/mm3 (0.84-5.20); LYMPHOCYTES PERCENT MAN 2 % (21-46); MONOCYTES ABSOLUTE MAN 0.35 K/mm3 (0.16-1.47); MONOCYTES PERCENT MAN 3 % (4-13); NEUTROPHILS ABSOLUTE MAN 11.09 K/mm3 (1.96-9.15); SEG NEUTROPHILS PERCENT MAN 95 % (41-73); TOTAL CELLS COUNTED 100
== END ==
LOC: LAB 12:45 → LAB SHORT 12:45
PROVIDERS: Internal Medicine
DX: I50.9 Heart failure, unspecified (principal); R60.0 Localized edema
CPT/HCPCS: 80048; 83880; 85025

== ENCOUNTER → 2020-06-30 | Outpatient (CLI) | payer MEDICARE ==
[~2020-06-30] MED LIST changes: +ACET500 PO; +ALUM-MAG HYDROX30 ML PO; -ARIP20 PO; -ATOR40TA PO; -BREO ELLIPTA 11 EACH INH; +DICLOFENAC SOD100 G1 TOP; +ESTRADIOL42.5 GM VAG; +FURO80 PO; +NYAMYC TOP; +ONDA8 PO; -POTCHL20ER PO; +SPIR25 PO; +TRAM50 PO; +TRIDERM28.4 GM TOP
[2020-06-30 19:49] LABS: BASOPHILS ABSOLUTE AUTO 0.11 K/mm3 (0.00-0.23); BASOPHILS PERCENT AUTO 1 % (0-2); EOSINOPHILS ABSOLUTE AUTO 0.13 K/mm3 (0.00-0.68); EOSINOPHILS PERCENT AUTO 1 % (0-6); Hematocrit 41.4 % (33.0-51.0); Hemoglobin 12.6 g/dL (11.5-16.0); Mean Corpuscular HGB 29.9 pg (26.0-34.0); Mean Corpuscular HGB Conc 30.4 g/dL (31.5-36.5); Mean Corpuscular Volume 98 fL (80-100); Mean Platelet Volume 9.7 fL (9.1-12.4); Platelet Count 246 K/mm3 (150-400); Red Blood Cell Count 4.22 M/mm3 (3.80-5.20); White Blood Cell Count 13.28 K/mm3 (4.00-11.30)
[2020-06-30 19:51] LABS: IMMATURE GRAN ABSOLUTE AUTO 0.36 K/mm3 (0.00-0.10); IMMATURE GRAN PERCENT AUTO 3 % (0-1); LYMPHOCYTES ABSOLUTE AUTO 1.41 K/mm3 (0.84-5.20); LYMPHOCYTES PERCENT AUTO 11 % (21-46); MONOCYTES ABSOLUTE AUTO 0.01 K/mm3 (0.16-1.47); MONOCYTES PERCENT AUTO 0 % (4-13); NEUTROPHILS ABSOLUTE AUTO 11.26 K/mm3 (1.96-9.15); NEUTROPHILS PERCENT AUTO 85 % (41-73)
[2020-06-30 20:00] LABS: Anion Gap 5 mmol/L (6-16); Blood Urea Nitrogen 17 mg/dL (8-24); Bun/Creatinine Ratio 20.3 (12.0-20.0); CO2, Blood 31 mmol/L (21-32); Calcium, Blood 8.7 mg/dL (8.5-10.1); Chloride, Blood 99 mmol/L (98-108); Creatinine, Blood 0.84 mg/dL (0.40-1.00); Glomerular Filtration Rate >60 (60-); Glucose, Blood 77 mg/dL (70-99); Potassium, Blood 3.4 mmol/L (3.5-5.5); Sodium, Blood 135 mmol/L (136-145)
== END | disposition home or self-care (01) ==
LOC: PLD 18:11 → LAB SHORT 18:11
PROVIDERS: Internal Medicine Hematology & Oncology
DX: D45 Polycythemia vera (principal)
CPT/HCPCS: 80048; 85025

== ENCOUNTER 2020-07-05 11:07 | Inpatient (IN) | payer MEDICARE ==
[~2020-07-05] VITALS: Ht 162.6 cm; Wt 71.5 kg
[~2020-07-05 11:07] MED LIST changes: -ACET500 PO; -ALUM-MAG HYDROX30 ML PO; -DICLOFENAC SOD100 G1 TOP; -ELIQUIS5 MG PO; -ESTRADIOL42.5 GM VAG; -FURO40 PO; -FURO80 PO; -LEVSOD100 PO; -METO50ER PO; -NYAMYC TOP; -ONDA8 PO; -SPIR25 PO; -TRAM50 PO; -TRIDERM28.4 GM TOP
[2020-07-05 11:52] LABS: Hematocrit 46.2 % (33.0-51.0); Hemoglobin 14.2 g/dL (11.5-16.0); Mean Corpuscular HGB Conc 30.7 g/dL (31.5-36.5); Mean Corpuscular Volume 95 fL (80-100); Mean Platelet Volume 9.6 fL (9.1-12.4); Platelet Count 322 K/mm3 (150-400); RDW Coefficient Variation 15.9 % (11.7-14.2); RDW Standard Deviation 55.8 fL (35.1-46.3); Red Blood Cell Count 4.89 M/mm3 (3.80-5.20); White Blood Cell Count 12.96 K/mm3 (4.00-11.30)
[2020-07-05 12:07] LABS: Albumin, Blood 2.7 g/dL (3.4-5.0); Albumin/Globulin Ratio 0.6 (0.8-1.8); Bilirubin, Total 0.8 mg/dL (0.1-1.0); Bun/Creatinine Ratio 19.2 (12.0-20.0); Calcium, Blood 8.9 mg/dL (8.5-10.1); Creatinine, Blood 0.99 mg/dL (0.40-1.00); Globulin, Blood 4.4 g/dL (2.2-4.0); Potassium, Blood 3.4 mmol/L (3.5-5.5); Total Protein, Blood 7.1 g/dL (6.4-8.2)
[2020-07-05 12:22] LABS: BAND PERCENT MAN 1 % (0-8); BASOPHILS PERCENT MAN 0 % (0-2); EOSINOPHILS PERCENT MAN 0 % (0-6); LYMPHOCYTES ABSOLUTE MAN 0.77 K/mm3 (0.84-5.20); LYMPHOCYTES PERCENT MAN 6 % (21-46); MONOCYTES ABSOLUTE MAN 0.25 K/mm3 (0.16-1.47); MONOCYTES PERCENT MAN 2 % (4-13); NEUTROPHILS ABSOLUTE MAN 11.92 K/mm3 (1.96-9.15); SEG NEUTROPHILS PERCENT MAN 91 % (41-73); TOTAL CELLS COUNTED 100
[2020-07-05 12:31] LABS: Source, Urine Catheter
[2020-07-05 12:38] LABS: Appearance, Urine Cloudy (Clear); Bilirubin, Urine Neg (Neg); Blood, Urine 5+ (Neg); Color, Urine Yellow (P-Yellow); Glucose Qualitative, Urine Neg (Neg); Ketones, Urine Neg (Neg); Leukocyte Esterase, Urine 3+ (Neg); Nitrite, Urine Pos (Neg); Protein, Urine 3+ (Neg); Urobilinogen, Urine NORM (Normal)
[2020-07-05 12:56] LABS: Bacteria Many /hpf; Red Blood Cells, Urine TNTC /hpf (0-2); Squamous Epithelial Cells Few /hpf (Few); White Blood Cells, Urine TNTC /hpf (0-5)
[2020-07-05] MEDS ORDERED: NYAMYC TOP ×2 (13:43→14:42)
[2020-07-05] MEDS ORDERED: POTA20LUD PO (13:44)
[2020-07-05] MEDS ORDERED: FURO80 PO (13:45)
[2020-07-05] MEDS ORDERED: ESTRADIOL42.5 GM VAG (13:47)
[2020-07-05] MEDS ORDERED: LOSA25 PO (13:48)
[2020-07-05] MEDS ORDERED: METO50ER PO (13:48)
[2020-07-05] MEDS ORDERED: ELIQUIS5 MG PO (13:49)
[2020-07-05] MEDS ORDERED: FURO40 PO (14:30)
[2020-07-05] MEDS ORDERED: LEVSOD100 PO (14:31)
[2020-07-05] MEDS ORDERED: PANT40 PO (14:32)
[2020-07-05] MEDS ORDERED: HYDURE500 PO (14:33)
[2020-07-05] MEDS ORDERED: ACET500 PO (14:36)
[2020-07-05] MEDS ORDERED: ALBU90OI INH (14:37)
[2020-07-05] MEDS ORDERED: TRAM50 PO (14:38)
[2020-07-05] MEDS ORDERED: TRIDERM28.4 GM TOP (14:39)
[2020-07-05] MEDS ORDERED: ONDA8 PO (14:40)
[2020-07-05] MEDS ORDERED: ALUM-MAG HYDROX30 ML PO (14:41)
[2020-07-05] MEDS ORDERED: DICLOFENAC SOD100 G1 TOP (14:42)
--- NOTE | 2020-07-05 15:00 | NUR ---
ADMISSION/TRANSFER NOTE PT AxOx3 WITH INTERMITTENT CONFUSION. ADMITTED FROM ED TO MEDICAL FLOOR, ARRIVING AT APPROX 1500. PT ARRIVED WITH LOW BPS AND NS BOLUS ORDERED. PER DR SANCHEZ, PATIENT SHOULD BE TRANSFERRED TO PCU IF PRESSURES STAY HYPOTENSIVE. BP 85/[address] SANCHEZ GAVE TELEPHONE ORDER TO TRANSFER. PT HAS NOTABLY WARM AND RED LLE. RLE COOL AND PINK. SIDDIQUI CATH REPLACED UPON ADMISSION. CULTURE UNABLE TO COLLECT D/T SCANT URINE OUTPUT AT SIDDIQUI PLACEMENT. PT SISTER, YEFRI IN ROOM. YEFRI UPDATED ON PLAN OF CARE FOR PT TO TRANSFER TO PCU-11. REPORT GIVEN TO ЮЛИЯ JUNIOR RN. PT SAFELY TRANSFERED TO PCU VIA BED WITH RN AND RESPIRATORY CARE FACULTY. DENIES FURTHER QUESTIONS AT THIS TIME.
--- NOTE | 2020-07-05 17:39 | NUR ---
PT'S SISTER NOTIFIED, PT GOING TO PCU 11
[2020-07-05 19:04] LABS: Source, Urine Catheter
[2020-07-05 19:12] LABS: Appearance, Urine Cloudy (Clear); Bilirubin, Urine Neg (Neg); Blood, Urine 4+ (Neg); Color, Urine Yellow (P-Yellow); Glucose Qualitative, Urine Neg (Neg); Ketones, Urine 1+ (Neg); Leukocyte Esterase, Urine 3+ (Neg); Nitrite, Urine Neg (Neg); Protein, Urine 3+ (Neg); Urobilinogen, Urine NORM (Normal)
--- NOTE | 2020-07-05 19:24 | NUR ---
SHIFT SUMMARY RECEIVED PT AT APPROX 1745 TO PCU 11. PT ALERT, ANSWERING QUESTIONS APPROPRIATELY, COOPERATING WITH CARE. PT AFEBRILE AT THIS TIME, CONTINUES HYPOTENSIVE WITH FLUID BOLUS INFUSING. REPORT HAS BEEN GIVEN TO MEGHA CATALAN TO ASSUME CARE OF PT.
[2020-07-05 19:26] LABS: White Blood Cells, Urine TNTC /hpf (0-5)
[2020-07-05 19:28] LABS: Bacteria Many /hpf; Squamous Epithelial Cells Mod /hpf (Few)
[2020-07-05 21:04] LABS: Anion Gap 8 mmol/L (6-16); Blood Urea Nitrogen 19 mg/dL (8-24); Bun/Creatinine Ratio 19.3 (12.0-20.0); CO2, Blood 24 mmol/L (21-32); Calcium, Blood 7.7 mg/dL (8.5-10.1); Chloride, Blood 108 mmol/L (98-108); Creatinine, Blood 0.99 mg/dL (0.40-1.00); Glomerular Filtration Rate 58 (60-); Glucose, Blood 112 mg/dL (70-99); Magnesium, Blood 1.3 mg/dL (1.6-2.4); Phosphorus, Blood 4.1 mg/dL (2.5-4.9); Potassium, Blood 3.8 mmol/L (3.5-5.5); Sodium, Blood 140 mmol/L (136-145)
--- NOTE | 2020-07-05 23:05 | NUR ---
CARE ASSUMPTION PT O/A X3. PT IS FORGETFUL AT TIMES. PT WITH LOW BP WITH LAST FLUID BOLUS INFUSING. PT RECEIVED LR PER ORDER FROM EMAR. PT BP STABLE. SPO2 >90% ON RA. PT SISTER, YEFRI, AT BED SIDE.
[2020-07-06 05:05] LABS: BASOPHILS ABSOLUTE AUTO 0.03 K/mm3 (0.00-0.23); BASOPHILS PERCENT AUTO 0 % (0-2); EOSINOPHILS ABSOLUTE AUTO 0.06 K/mm3 (0.00-0.68); EOSINOPHILS PERCENT AUTO 0 % (0-6); Hematocrit 36.3 % (33.0-51.0); Hemoglobin 11.1 g/dL (11.5-16.0); IMMATURE GRAN ABSOLUTE AUTO 0.31 K/mm3 (0.00-0.10); IMMATURE GRAN PERCENT AUTO 2 % (0-1); LYMPHOCYTES ABSOLUTE AUTO 1.11 K/mm3 (0.84-5.20); LYMPHOCYTES PERCENT AUTO 8 % (21-46); MONOCYTES PERCENT AUTO 2 % (4-13); Mean Corpuscular HGB 29.4 pg (26.0-34.0); Mean Corpuscular HGB Conc 30.6 g/dL (31.5-36.5); Mean Corpuscular Volume 96 fL (80-100); Mean Platelet Volume 9.9 fL (9.1-12.4); NEUTROPHILS ABSOLUTE AUTO 12.04 K/mm3 (1.96-9.15); NEUTROPHILS PERCENT AUTO 87 % (41-73); Platelet Count 231 K/mm3 (150-400); RDW Coefficient Variation 15.9 % (11.7-14.2); Red Blood Cell Count 3.78 M/mm3 (3.80-5.20); White Blood Cell Count 13.85 K/mm3 (4.00-11.30)
[2020-07-06 05:38] LABS: Alanine Aminotransfer (ALT/SGP 9 U/L (12-78); Albumin, Blood 1.9 g/dL (3.4-5.0); Albumin/Globulin Ratio 0.6 (0.8-1.8); Alk Phos 56 U/L (50-136); Anion Gap 6 mmol/L (6-16); Aspartate Aminotrans (AST/SGOT 12 U/L (12-37); Bilirubin, Total 0.7 mg/dL (0.1-1.0); Blood Urea Nitrogen 19 mg/dL (8-24); Bun/Creatinine Ratio 23.2 (12.0-20.0); CO2, Blood 25 mmol/L (21-32); Calcium, Blood 7.4 mg/dL (8.5-10.1); Chloride, Blood 105 mmol/L (98-108); Creatinine, Blood 0.82 mg/dL (0.40-1.00); Globulin, Blood 3.4 g/dL (2.2-4.0); Glomerular Filtration Rate >60 (60-); Glucose, Blood 81 mg/dL (70-99); Magnesium, Blood 1.4 mg/dL (1.6-2.4); Phosphorus, Blood 3.1 mg/dL (2.5-4.9); Potassium, Blood 3.6 mmol/L (3.5-5.5); Sodium, Blood 136 mmol/L (136-145); Total Protein, Blood 5.3 g/dL (6.4-8.2)
--- NOTE | 2020-07-06 05:46 | NUR ---
SHIFT SUMMARY. PT A/O X3. MOMENTS OF FORGETFULNESS. PT VSS. SPO2 >90% ON RA. TELE SR W PAC 70S. PT SISTER IS AT BEDSIDE AND ASSISTS IN HER CARE. PT COMPLAINS OF ARM PAIN, BUT IT IS RELIEVED WITH REST ON A PILLOW AND NOT RAISING IT. PT REFUSED TO TAKE TYLENOL, PT STATES " I DONT WANT LIKE TO TAKE UNNEED MEDICATION". PT COLOSTOMY EMPTIED THIS SHIFT. NO ACUTE CHANGES DURING THIS SHIFT. WILL CONTINUE TO MONITOR AND PROVIDE CARE UNTIL HAND OFF WITH DAY SHIFT.
--- NOTE | 2020-07-06 19:49 | NUR ---
PT XRAYED FOR L SHOULDER PAIN; PT ATE 100% OF ALL 3 MEALS; PT REPORTED SLIGHTLY IMPROVING BLE SWELLING; PT'S SISTER YEFRI AT THE BEDSIDE; PT ON RA SATTING 100%; PT DENIES ADDITIONAL CONCERNS AT THIS TIME.
--- NOTE | 2020-07-06 21:52 | NUR ---
TRANSFER NOTE PT MEDICAL NO TELE STATUS. REPORT CALLED TO MEDICAL FLOOR RN ACCEPTING PATIENT. PT A/OX3 WITH SOME FORGETFULNESS. VSS. SPO2 >95% ON RA. CHRONIC SIDDIQUI CATH PATENT AND DRAINING. COLOSTOMY PATENT AND DRAINING LOOSE BROWN STOOL. DRIP INFUSING PER ORDERS. PT TO BE TRANSFERED BY WHEELCHAIR WITH BELONGINGS.
--- NOTE | 2020-07-06 22:55 | NUR ---
2235 PT ARRIVED TO ROOM FROM PCU VIA WHEELCHAIR IN STABLE CONDITION. AGREE WITH PREVIOUS RN'S ASSESSMENT EXCEPT PT IS CURRENTLY HAVING AUDABLE WHEEZES. ON RA, 98%. PT REPORTS SOB THAT INCREASES WITH EXERTION. PT DECLINED SCD'S. NO OTHER APPARENT SIGNS OF DISTRESS. DENIES NEED FOR ANYTHING AT THIS TIME. CALL LIGHT IS IN REACH. BED ALARM IS ON.
--- NOTE | 2020-07-07 00:10 | NUR ---
PT LYING IN BED, EYES CLOSED, APPEARS TO BE RESTING. WAKES EASILY TO VERBAL STIMULI. NO APPARENT SIGNS OF DISTRESS. DENIES NEED FOR ANYTHING AT THIS TIME. CALL LIGHT IS IN REACH. BED ALARM IS ON.
--- NOTE | 2020-07-07 06:28 | NUR ---
0200 PT LYING IN BED, EYES CLOSED, APPEARS TO BE RESTING. BREATHING IS EVEN, UNLABORED. NO APPARENT SIGNS OF DISTRESS. CALL LIGHT IS IN REACH. BED ALARM IS ON.
--- NOTE | 2020-07-07 06:28 | NUR ---
0400 PT LYING IN BED, EYES CLOSED, APPEARS TO BE RESTING. WAKES EASILY TO VERBAL STIMULI. NO APPARENT SIGNS OF DISTRESS. CALL LIGHT IS IN REACH. BED ALARM IS ON.
--- NOTE | 2020-07-07 06:29 | NUR ---
PT IS AAO X 3-4, REPORTS SOB, ON RA AT 96%. PT HAS SIDDIQUI AND COLOSTOMY. PT HAS SOME REDNESS ON HER BOTTOM AND SOME YEAST UNDER HER BREASTS. USING POWDER FOR BOTTOM AND NYSTATIN POWDER UNDER BREASTS.
--- NOTE | 2020-07-07 06:30 | NUR ---
GAVE PT HER 0600 MEDS, NO APPARENT SIGNS OF DISTRESS. PT DENIES NEED FOR ANYTHING AT THIS TIME. CALL LIGHT IS IN REACH. BED ALARM IS ON. NO OTHER CHANGES THIS SHIFT.
--- NOTE | 2020-07-07 14:25 | NUR ---
CARE COORDINATION REFERRAL - ADMIT: 07/05/20 DISCHARGE: DX: SEPSIS CC: [facility] [place] CALL: RESIDENCE: [facility] CAREGIVER: YEFRI COLE, FAMILY MEMBER, MEDINA PEARSON, FAMILY MEMBER, ALMA COLE II, FAMILY MEMBER, DX: ABSCESS OF BLADDER, CHF, DVT, GERD, HTN, HYPERLIPIDEMIA, SEE LIST DME: WOUND CARE SUPPLIES, COLOSTOMY SUPPLIES, COMPRESSION STOCKINGS CCM: NONE HOME HEALTH: [facility] - 2019 & 2020 SUMMARY: ADMIT: 07/05/20 07/06/20- PER CHART REVIEW WITH DR. SANCHEZ, PT WILL NEED IV MEDS FOR 5-7 DAYS 3 TIMES A DAY. CALLED [facility] AND THEY ARE NOT ABLE TO TAKE PT BACK WITH WHILE ON IV ANTIBIOTICS. SPOKE WITH SISTER YEFRI ABOUT THE ABOVE INFORMATION. PRINTED AND FAXED PACKET TO [facility] FOR REVIEW. WILL CONTACT SISTER ONCE THERE MORE INFORMATION TO SHARE. -YINKA
--- NOTE | 2020-07-07 19:32 | NUR ---
a+o to family and self at start of shift, by end of shift after sister spent visiting hours with her she was able to tell me where she was and what the time and date were, still forgetful and easily confused/frusterated call light in reach, abx infusing with no s/sx of infiltration or infection but still is sensitive when line is flushed, rm air ls still diminished, currently getting a breathing treatment from rt, worked with pt and ot to sit at side of bed and to walk in rm, following/remembering instructions is challenging, bsr shared with noc nurse and pt
--- NOTE | 2020-07-07 23:00 | NUR ---
WENT TO PT'S ROOM ON MEDICAL FLOOR TO ASSIST WITH TRANSFER OF PT TO ICU ROOM 13. REPORT REECEIVED AT BEDSIDE. DID TEMPERATURE OF PT IN ROOM WITH READING 104.2. PT BROUGHT TO ICU 13 AND ARRIVES AT 2155. PT HAS ICE PACKS UNDER ARMS, AND NO BLANKETS. AFTER GETTING PT SITUATED, AND AFTER DALTON, RN COMES TO SEE PT. BOLUS OF NORMAL SALINE DONE PER 30ML / KG SEPSIS PROTOCOL. NOTING ELEVATED LACTIC ACID. SIDDIQUI CATHETER CHANGED OUT TO SIDDIQUI WITH TEMP PROBE. UA SENT TO LAB FOR PROCESSING. PT WITHDRAWN, AND VOICES THAT SHE FEELS FRUSTRATED ABOUT HAVING TO BE IN ICU. WILL REASSURE PT. WILL REVIEW CHART AND PLAN OF CARE FOR THIS PT.
[2020-07-07 23:08] LABS: Source, Urine Catheter
[2020-07-07 23:11] LABS: Bilirubin, Urine Neg (Neg); Blood, Urine 3+ (Neg); Glucose Qualitative, Urine Neg (Neg); Ketones, Urine Neg (Neg); Leukocyte Esterase, Urine 2+ (Neg); Nitrite, Urine Neg (Neg); Protein, Urine 1+ (Neg); Urobilinogen, Urine NORM (Normal)
[2020-07-07 23:23] LABS: Appearance, Urine Hazy (Clear); Color, Urine Yellow (P-Yellow); White Blood Cells, Urine TNTC /hpf (0-5)
[2020-07-07 23:24] LABS: Bacteria Few /hpf; Red Blood Cells, Urine 0-2 /hpf (0-2); Squamous Epithelial Cells Not Seen /hpf (Few)
--- NOTE | 2020-07-08 02:00 | NUR ---
POWERGLIDE IN LEFT UPPER ARM NOTED TO BE INFILTRATED. THIS IV REMOVED. CATHETER TIP IS INTACT. 18 GAUGE POWERGLIDE 10 CM LONG STARTED IN RIGHT UPPER ARM. PT TOLERATES THIS WELL. DID DRAW LABS AND SENT TO LAB FOR PROCESSING. PT ABLE TO TAKE IBUPROFEN AFTER RECEIVING A DOSE OF ZOFRAN. PT'S TEMPERATURE HAS BEEN DECREASING. HAVE REMOVED ICE PACKS AT THIS TIME. PT STATES SHE IS FEELING SOMEWHAT BETTER. CALL FROM PT'S SISTER - YEFRI. UPDATE GIVEN.
[2020-07-08 02:07] LABS: Hematocrit 40.2 % (33.0-51.0); Mean Corpuscular HGB 29.3 pg (26.0-34.0); Mean Corpuscular HGB Conc 29.9 g/dL (31.5-36.5); Mean Corpuscular Volume 98 fL (80-100); Mean Platelet Volume 11.6 fL (9.1-12.4); Platelet Count 261 K/mm3 (150-400); RDW Coefficient Variation 15.7 % (11.7-14.2); RDW Standard Deviation 56.5 fL (35.1-46.3); Red Blood Cell Count 4.09 M/mm3 (3.80-5.20); White Blood Cell Count 13.66 K/mm3 (4.00-11.30)
[2020-07-08 02:13] LABS: Anion Gap 8 mmol/L (6-16); Blood Urea Nitrogen 7 mg/dL (8-24); Bun/Creatinine Ratio 11.9 (12.0-20.0); CO2, Blood 21 mmol/L (21-32); Calcium, Blood 7.6 mg/dL (8.5-10.1); Chloride, Blood 110 mmol/L (98-108); Creatinine, Blood 0.59 mg/dL (0.40-1.00); Glomerular Filtration Rate >60 (60-); Glucose, Blood 99 mg/dL (70-99); Magnesium, Blood 1.7 mg/dL (1.6-2.4); Phosphorus, Blood 2.1 mg/dL (2.5-4.9); Potassium, Blood 2.8 mmol/L (3.5-5.5); Sodium, Blood 139 mmol/L (136-145)
[2020-07-08 02:29] LABS: BAND PERCENT MAN 3 % (0-8); BASOPHILS ABSOLUTE MAN 0.13 K/mm3 (0.00-0.23); BASOPHILS PERCENT MAN 1 % (0-2); EOSINOPHILS PERCENT MAN 0 % (0-6); LYMPHOCYTES ABSOLUTE MAN 0.27 K/mm3 (0.84-5.20); LYMPHOCYTES PERCENT MAN 2 % (21-46); METAMYELOCYTE ABSOLUTE MAN 0.13 K/mm3 (0.00-0.00); METAMYELOCYTE PERCENT MAN 1 % (0-0); MONOCYTES ABSOLUTE MAN 1.36 K/mm3 (0.16-1.47); MONOCYTES PERCENT MAN 10 % (4-13); NEUTROPHILS ABSOLUTE MAN 11.74 K/mm3 (1.96-9.15); SEG NEUTROPHILS PERCENT MAN 83 % (41-73); TOTAL CELLS COUNTED 100
--- NOTE | 2020-07-08 05:06 | NUR ---
07/07/202029 PT FOUND SHAKING AND BREATHING RAPIDLY. PT ALSO HAS A NOTED RAPID PULSE. PROVIDER LYNN CALLED AND ORDERS GIVEN TO START IV FLUIDS AND COOLING MEASURES FOR FEVER. PT PLACED ON O2 VIA NC W/ INCREASED SPO2. PT TX FOR NAUSEA PER EMAR. SD TONY BAILEY CALLED AND WAS ABLE TO COME TO ROOM AND SEE PT. PROVIDER LYNN ORDERED FOR TRANSFER TO ICU. LAUREN CLEVELAND CALLED AND HE RESPONDED TO BEDSIDE FOR REPORT. PT TRANSFERED TO ICU VIA BED. PT SISTER WAS CALLED AND INFORMED OF PT BEING MOVED TO ICU AND UPDATED ON CURRENT SITUATION.
--- NOTE | 2020-07-08 06:01 | NUR ---
PT'S CURRENTLY AFEBRILE. NO S/S ADVERSE REACTION TO ANTIBIOTIC THERAPY. PT CURRENTLY RESTING IN BED. VSS. NO S/S DISTRESS. CALL FROM YEFRI, PT'S SISTER, UPDATE GIVEN. WILL CONTINEU TO MONITOR PT, AND WILL REPORT OFF TO ONCOMING RN.
[2020-07-08 14:55] LABS: Anion Gap 7 mmol/L (6-16); Blood Urea Nitrogen 9 mg/dL (8-24); Bun/Creatinine Ratio 9.9 (12.0-20.0); CO2, Blood 20 mmol/L (21-32); Calcium, Blood 7.3 mg/dL (8.5-10.1); Chloride, Blood 111 mmol/L (98-108); Creatinine, Blood 0.91 mg/dL (0.40-1.00); Glomerular Filtration Rate >60 (60-); Glucose, Blood 100 mg/dL (70-99); Potassium, Blood 3.7 mmol/L (3.5-5.5); Sodium, Blood 138 mmol/L (136-145)
--- NOTE | 2020-07-08 14:55 | NUR ---
Report received from Fiona Gardner RN at this time.
--- NOTE | 2020-07-08 14:57 | NUR ---
REPORT TO JOSE RN IN PCU WHO WILL ASSUME PT CARE. PT CURRENTLY WORKING WITH PHYSICAL THERAPY PRIOR TO LEAVING FOR PCU. SIDDIQUI REMAINS DRAINING TO GRAVITY, NS 75ML/HR INFUSING AND POTASSIUM PHOSPHATE INFUSING AT THE TIME OF TRANSFER TO PCU. PT WAS CHANGED TO A REGULAR DIET PRIOR TO LEAVING. PT A/O X3. FAMILY AT BEDSIDE. PT TALKING IN FULL SENTENCES, REPORTS SOME SOB THAT WAS RESOLVED WITH BREATHING TREATMENT. VSS, SOME SOFT BPs NOTED INTERMITTENTLY.
--- NOTE | 2020-07-08 15:00 | NUR ---
07/08/20- per chart review with Dr. Goldberg, pt was transferred to ICU due to her sepsis/cultures. Pt was started on Tobramycin. Temp was done prior to transfer and it was documented as 104.2. Dr. Pan has consulted and will assist with antibiotic treatment of pt. Delayed d/c plan to SNF. Per chart, pt had temp of 104 yesterday. -love
--- NOTE | 2020-07-08 15:52 | NUR ---
Pt received from ICU, transported by wheelchair to PCU 1. Telemetry box connected, verified box number and cardiac rhythm with KAITLYNN Alexander. Pt is currently in sinus rhythm at 81
--- NOTE | 2020-07-08 18:52 | NUR ---
Difficulty breathing reported. pt c/o feeling like she just "can't catch my breath". Spo2 100% on room air, RR 22/min while lying in bed with HOB elevated 35 degrees. Lungs clear to auscultation anteriorly. Denies any other pain/discomfort. In no apparent distress, no use of accessory muscles noted. Called Respiratory care and requested a breathing tx. It has been 6 hours since her last one.
[2020-07-09 04:37] LABS: BASOPHILS ABSOLUTE AUTO 0.03 K/mm3 (0.00-0.23); BASOPHILS PERCENT AUTO 0 % (0-2); EOSINOPHILS ABSOLUTE AUTO 0.13 K/mm3 (0.00-0.68); EOSINOPHILS PERCENT AUTO 1 % (0-6); Hemoglobin 10.3 g/dL (11.5-16.0); Mean Corpuscular HGB 29.8 pg (26.0-34.0); Mean Corpuscular HGB Conc 30.3 g/dL (31.5-36.5); Mean Corpuscular Volume 98 fL (80-100); Mean Platelet Volume 10.4 fL (9.1-12.4); Platelet Count 186 K/mm3 (150-400); RDW Coefficient Variation 15.9 % (11.7-14.2); Red Blood Cell Count 3.46 M/mm3 (3.80-5.20)
[2020-07-09 04:44] LABS: IMMATURE GRAN ABSOLUTE AUTO 0.26 K/mm3 (0.00-0.10); IMMATURE GRAN PERCENT AUTO 2 % (0-1); LYMPHOCYTES ABSOLUTE AUTO 1.42 K/mm3 (0.84-5.20); LYMPHOCYTES PERCENT AUTO 11 % (21-46); MONOCYTES PERCENT AUTO 2 % (4-13); NEUTROPHILS ABSOLUTE AUTO 10.86 K/mm3 (1.96-9.15); NEUTROPHILS PERCENT AUTO 84 % (41-73)
--- NOTE | 2020-07-09 04:47 | NUR ---
SHIFT SUMMARY PT WAS ALERT AND ORIENTED WITH SOME CONFUSION AND FORGETFULNESS. PT WOULD REPEAT HERSELF AT TIMES AND FORGET STAFF OR WHAT HAD HAPPENEND EARLIER IN THE DAY. PT ABLE TO ANSWER MOST QUESTIONS APPROPRIATELY. PT HAD SKIN BREAKDOWN ON INNER R THIGH/GROIN AREA WITH DARK RED SKIN SURROUNDING. REDNESS MARKED WITH SKIN PEN TO MONITOR CHANGE. AREA WAS TENDER TO TOUCH AND PT COMPLAINED OF PAIN WITH MOVEMENT. Q2H RIMMA CARE PERFORMED AND WOUND CLEANED AND OPEN TO AIR. PICTURES PLACED IN CHART. VITALS WERE STABLE WITH BP 117-132 SYSTOLIC. HR 80-90'S. O2 SATS >90% ON ROOM AIR. PT AFEBRILE. PT HAD A QUIET UNEVENTFUL NIGHT AND WAS ABLE TO GET SOME SLEEP.
[2020-07-09 05:01] LABS: Alanine Aminotransfer (ALT/SGP 8 U/L (12-78); Albumin, Blood 1.7 g/dL (3.4-5.0); Albumin/Globulin Ratio 0.5 (0.8-1.8); Alk Phos 49 U/L (50-136); Anion Gap 5 mmol/L (6-16); Aspartate Aminotrans (AST/SGOT 14 U/L (12-37); Bilirubin, Total 0.3 mg/dL (0.1-1.0); Blood Urea Nitrogen 10 mg/dL (8-24); Bun/Creatinine Ratio 11.9 (12.0-20.0); CO2, Blood 21 mmol/L (21-32); Calcium, Blood 7.1 mg/dL (8.5-10.1); Chloride, Blood 113 mmol/L (98-108); Creatinine, Blood 0.84 mg/dL (0.40-1.00); Globulin, Blood 3.2 g/dL (2.2-4.0); Glomerular Filtration Rate >60 (60-); Glucose, Blood 83 mg/dL (70-99); Phosphorus, Blood 3.6 mg/dL (2.5-4.9); Potassium, Blood 3.5 mmol/L (3.5-5.5); Sodium, Blood 139 mmol/L (136-145); Total Protein, Blood 4.9 g/dL (6.4-8.2)
--- NOTE | 2020-07-09 17:05 | NUR ---
END OF SHIFT NOTE: HYDROELECTRIC POWERPLANT SUPERVISOR WORKING WITH TALON Mckeon RN. ASSUMED CARE OF PATIENT AROUND 0700. PATIENT IS ALERT. SHE IS ORIENTED TO SELF AND SITUATION. SHE FORGETS SOME STAFF MEMEBERS AND THE NAME OF THE HOSPITAL AT TIMES AND WHY SHE IS HERE. PT HAS A HISTORY OF DEMENTIA. PATIENTS HEART RATE HAS BEEN MILDLY ELEVEATED BUT <110 BPM. OTHERWISE VSS. PT STATES SHE IS FEELNG SHORT OF BREATH BUT IS RESTING COMFORTABLY ON ROOM AIR AND SATURATIONS ARE >96%. SHE DOES HAVE AN OCCATIONAL COUGH THAT IS NONPRODUCTIVE. DR. APODACA SAT DOWN IN THE ROOM WITH THE PATIENT AND HER SISTER TO GO OVER HER STAY AND DXAngela SINHA HAS A COLOSTOMY AND BAG WAS CHANGED TODAY. PATIENT DOES HAVE A CHRONIC INDWELLING CATHETER THAT IS DRAINING YELLOW URINE. PATIENT HAS ERYTHEMA TO HER UPPER THIGHS AND VULVA. PROVIDER HAS LOOKED AT IT TWICE TODAY AND PATIENT HAD A PELVIC CT TODAY. PATIENT IS CURRENTLY RESTING IN BED. BED IS IN THE LOWEST POSITION AND CALL LIGHT IS WITHIN REACH.
[2020-07-10 03:56] LABS: BASOPHILS ABSOLUTE AUTO 0.05 K/mm3 (0.00-0.23); BASOPHILS PERCENT AUTO 0 % (0-2); EOSINOPHILS ABSOLUTE AUTO 0.16 K/mm3 (0.00-0.68); EOSINOPHILS PERCENT AUTO 1 % (0-6); Hematocrit 36.2 % (33.0-51.0); Mean Corpuscular HGB Conc 30.4 g/dL (31.5-36.5); Mean Corpuscular Volume 96 fL (80-100); Mean Platelet Volume 10.7 fL (9.1-12.4); Platelet Count 235 K/mm3 (150-400); RDW Coefficient Variation 15.9 % (11.7-14.2); RDW Standard Deviation 56.3 fL (35.1-46.3); Red Blood Cell Count 3.79 M/mm3 (3.80-5.20); White Blood Cell Count 13.31 K/mm3 (4.00-11.30)
[2020-07-10 03:57] LABS: IMMATURE GRAN ABSOLUTE AUTO 0.42 K/mm3 (0.00-0.10); IMMATURE GRAN PERCENT AUTO 3 % (0-1); LYMPHOCYTES ABSOLUTE AUTO 1.39 K/mm3 (0.84-5.20); LYMPHOCYTES PERCENT AUTO 10 % (21-46); MONOCYTES ABSOLUTE AUTO 0.22 K/mm3 (0.16-1.47); MONOCYTES PERCENT AUTO 2 % (4-13); NEUTROPHILS ABSOLUTE AUTO 11.07 K/mm3 (1.96-9.15); NEUTROPHILS PERCENT AUTO 83 % (41-73)
[2020-07-10 04:10] LABS: Anion Gap 5 mmol/L (6-16); Blood Urea Nitrogen 6 mg/dL (8-24); Bun/Creatinine Ratio 7.8 (12.0-20.0); CO2, Blood 23 mmol/L (21-32); Calcium, Blood 7.7 mg/dL (8.5-10.1); Chloride, Blood 110 mmol/L (98-108); Creatinine, Blood 0.77 mg/dL (0.40-1.00); Glomerular Filtration Rate >60 (60-); Glucose, Blood 88 mg/dL (70-99); Potassium, Blood 3.2 mmol/L (3.5-5.5); Sodium, Blood 138 mmol/L (136-145)
--- NOTE | 2020-07-10 04:33 | NUR ---
SHIFT SUMMARY PATIENT ALERT AND ORIENTED X4. VSS. PATIENT RESTED WELL THROUGHOUT THE NIGHT. SIDDIQUI PATENT AND DRAINING TO GRAVITY. OSTOMY PRODUCING BROWN STOOL STOMA WITHIN NORMAL LIMITS, NO IRRITATION AROUND STOMA NOTED. PATIENT HAS CELLULITIS TO RIGHT UPPER THIGH, IT WAS TRACED AND REDNESS HAS NOT SPREAD THROUGHOUT SHIFT. POWERGLIDE TO KAIT PATENT AND DRAWING APPROPRIATELY. NO ACUTE CHANGES OCCURED OVER SHIFT. WILL CONTINUE TO MONITOR UNTIL END OF SHIFT.
--- NOTE | 2020-07-10 05:15 | NUR ---
FLUID STATUS IT WAS NOTED THAT IV LASIX WAS STARTED ON PT DUE TO POSSIBLE FLUID OVERLOAD/EDEMA IN PT ON DAY SHIFT BY EFM PROVIDER. FLUIDS STILL INFUSING AT 75MLS/HR. LYNN LEONE CALLED REGARDING THIS. NPO STATES TO CALL EFM PROVIDER, NO ANSWER. FLUIDS HELD ON CLINICAL JUDGEMENT. 0500 - PT SOB. WHEEZEZ/CRACKLES NOTED T/O BILAT LUNGS. CHEYANNE CALLED. IV LASIX 40MG OT ORDERED. IV KCL ORDERED ON TOP DUE TO AM LABS K 3.2.
--- NOTE | 2020-07-10 16:06 | NUR ---
REDDENED AREA TO THE MEDIAL ASPECT OF THE LEFT UPPER ARM WITH EDEMA DISTALLY. DR. APODACA WAS NOTIFIED AND SHE CAME AND SAW THE PATIENT. SHE WILL PUT IN AN ORDER FOR AN ULTRASOUND. PLEASE SEE SHIFT ASSESSMENT FOR OTHER SKIN FINDINGS.
--- NOTE | 2020-07-10 17:44 | NUR ---
END OF SHIFT SUMMARY: SCORER HELPER WORKING WITH TALON Meza PATIENT IS ALERT WITH SOME FORGETFULLNESS. PATIENT HAS DEMENTIA AND IS AT BASELINE. VSS. PATIENT HAS EDEMA IN BLE AND SOME SWELLING TO HER LEFT ARM. LASIX AND POTASSIUM WHERE STARTD LAST NGIHT. THERE IS REDNESS AND PAIN TO HER LEFT UPPER ARM. DR. APODACA WAS CALLED AND AN ULTRASOUND WAS ORDERED FOR A POSSIBLE BLOOD CLOT. RESULTS ARE PENDING. PT HAS SOME SCATTERED WHEEZES AND AN OCCASIONAL COUGH. PATIENT STILL HAS SOME SIGNIFICANT REDNESS TO HER LABIA, MONS PUBIS, AND RIGHT UPPER THIGH. IT LOOKS BETTER TODAY BUT IS STILL VERY TENDER WHEN TOUCHED AND RED. PATIENT IS LAYING IN BED RESTING. BED IS IN THE LOWEST POSITION AND CALL LIGHT IS WITHIN REACH.
--- NOTE | 2020-07-10 18:15 | NUR ---
VENOUS DUPLEX DIDN'T SHOW A BLOOD CLOT IN THE LUE PER REPORT. LEFT ARM IS ELEVATED ON A PILLOW AND IS STARTED TO HAVE SOME DECREASE IN SWELLING. WHEN I ASK THE PATIENT ABOUT PAIN SHE STATES SHE DOESN'T HAVE ANY UNLESS THE THAT PART ON HER ARM IS TOUCHED. PATIENT WAS GIVEN TYLENOL PRIOR TO VENOUS DUPLEX.
[2020-07-11 05:19] LABS: BASOPHILS ABSOLUTE AUTO 0.03 K/mm3 (0.00-0.23); BASOPHILS PERCENT AUTO 0 % (0-2); EOSINOPHILS ABSOLUTE AUTO 0.12 K/mm3 (0.00-0.68); EOSINOPHILS PERCENT AUTO 2 % (0-6); Hematocrit 37.5 % (33.0-51.0); Hemoglobin 11.3 g/dL (11.5-16.0); IMMATURE GRAN ABSOLUTE AUTO 0.36 K/mm3 (0.00-0.10); IMMATURE GRAN PERCENT AUTO 4 % (0-1); LYMPHOCYTES ABSOLUTE AUTO 1.45 K/mm3 (0.84-5.20); LYMPHOCYTES PERCENT AUTO 18 % (21-46); MONOCYTES ABSOLUTE AUTO 0.18 K/mm3 (0.16-1.47); MONOCYTES PERCENT AUTO 2 % (4-13); Mean Corpuscular HGB Conc 30.1 g/dL (31.5-36.5); Mean Corpuscular Volume 96 fL (80-100); NEUTROPHILS PERCENT AUTO 74 % (41-73); Platelet Count 203 K/mm3 (150-400); RDW Coefficient Variation 15.9 % (11.7-14.2); RDW Standard Deviation 55.9 fL (35.1-46.3); White Blood Cell Count 8.14 K/mm3 (4.00-11.30)
--- NOTE | 2020-07-11 05:33 | NUR ---
SHIFT SUMMARY NO ACUTE CHANGES THIS SHIFT. VSS. ON RA. REMAINS SR. LUNG SOUNDS IMPROVING WITH LESS WHEEZE/CRACKLES T/O. PT DIURESING WELL. BILAT ARMS REMAIN PAINFUL , L ARM NOTICEABLY MORE SWOLLEN THAN RIGHT. COLOSTOMY EMPTIED OINCE THIS SHIFT. PT BEING TURNED BY STAFF WHEN PT ALLOWS. OTHERWISE, PT HAS SLEPT FOR MAJORITY OF SHIFT. WCTM.
[2020-07-11 05:46] LABS: Anion Gap 4 mmol/L (6-16); Blood Urea Nitrogen 5 mg/dL (8-24); Bun/Creatinine Ratio 7.4 (12.0-20.0); CO2, Blood 27 mmol/L (21-32); Calcium, Blood 8.1 mg/dL (8.5-10.1); Chloride, Blood 106 mmol/L (98-108); Creatinine, Blood 0.67 mg/dL (0.40-1.00); Glomerular Filtration Rate >60 (60-); Glucose, Blood 78 mg/dL (70-99); Potassium, Blood 3.7 mmol/L (3.5-5.5); Sodium, Blood 137 mmol/L (136-145)
--- NOTE | 2020-07-11 14:58 | NUR ---
Assumed Care Received report from Reba Student-RN in PCU. Patient arrived from PCU to [place] [id number] via w/c. On RA, very forgetful requiring frequent reminders. Transferred w/ 1-2P c gait, full weight bearing. BUE swelling noted, some bruising to LORY. Denies pain. Mepilex to buttocks placed today by REFRIGERATING OILER. Arrived with two personal belongings bag. No family upon arrival to unit. Per Reba, sister Peggy has been notified of transfer. [facility]. Call light in reach.
--- NOTE | 2020-07-11 16:51 | NUR ---
Shift Summary A/O to self and family. HR a little tachy, all other VSS. Holly patent and draining yellow clear urine. Ostomy appliance intact and draining dark greenish/brownish loose stools. Denies pain, nausea, vomiting. Currently sitting in chair awaiting dinner. Peggy (sister) is at the bedside assisting with some ADL's. No acute changes since assumed care. WCTM.
[2020-07-12 04:58] LABS: BASOPHILS ABSOLUTE AUTO 0.02 K/mm3 (0.00-0.23); BASOPHILS PERCENT AUTO 0 % (0-2); EOSINOPHILS ABSOLUTE AUTO 0.11 K/mm3 (0.00-0.68); EOSINOPHILS PERCENT AUTO 2 % (0-6); Hematocrit 36.1 % (33.0-51.0); Hemoglobin 11.2 g/dL (11.5-16.0); IMMATURE GRAN ABSOLUTE AUTO 0.11 K/mm3 (0.00-0.10); IMMATURE GRAN PERCENT AUTO 2 % (0-1); LYMPHOCYTES ABSOLUTE AUTO 1.52 K/mm3 (0.84-5.20); LYMPHOCYTES PERCENT AUTO 23 % (21-46); MONOCYTES ABSOLUTE AUTO 0.17 K/mm3 (0.16-1.47); MONOCYTES PERCENT AUTO 3 % (4-13); Mean Corpuscular HGB 29.6 pg (26.0-34.0); Mean Corpuscular Volume 95 fL (80-100); Mean Platelet Volume 12.3 fL (9.1-12.4); NEUTROPHILS ABSOLUTE AUTO 4.73 K/mm3 (1.96-9.15); NEUTROPHILS PERCENT AUTO 71 % (41-73); Platelet Count 249 K/mm3 (150-400); RDW Coefficient Variation 15.6 % (11.7-14.2); RDW Standard Deviation 53.5 fL (35.1-46.3); Red Blood Cell Count 3.79 M/mm3 (3.80-5.20); White Blood Cell Count 6.66 K/mm3 (4.00-11.30)
[2020-07-12 05:23] LABS: Anion Gap 2 mmol/L (6-16); Blood Urea Nitrogen 5 mg/dL (8-24); Bun/Creatinine Ratio 7.2 (12.0-20.0); CO2, Blood 31 mmol/L (21-32); Calcium, Blood 8.3 mg/dL (8.5-10.1); Chloride, Blood 104 mmol/L (98-108); Creatinine, Blood 0.69 mg/dL (0.40-1.00); Glomerular Filtration Rate >60 (60-); Glucose, Blood 80 mg/dL (70-99); Potassium, Blood 3.6 mmol/L (3.5-5.5); Sodium, Blood 137 mmol/L (136-145)
--- NOTE | 2020-07-12 06:50 | NUR ---
PATIENT SLEPT WELL OVERNIGHT. UNABLE TO USE RIGHT ARM POWERGLIDE IT WAS TOO PAINFUL FOR PATIENT, GEOPHYSICAL PROSPECTING SURVEYOR WAS ABLE TO GET 22G IV IN HER LEFT HAND. CHUCHO'S ARMS ARE BOTH EDEMATOUS, RED AND WARM TO THE TOUCH. BOTH MERREM AND IV FLUCONAZOLE WERE ADMINISTERED THROUGH HER LEFT WRIST IV. ALTHOUGH THAT TOO WAS SENSITIVE. PATIENT DRAINING CLEAR CARLOS/YELLOW URINE INTO SIDDIQUI CATHETER. ALERT AND ORIENTED X2-3 BUT VERY FORGETFUL. COOPERATIVE WITH CARE.
--- NOTE | 2020-07-12 10:07 | NUR ---
09- dr berumen rounding on pt 0930- speech evaluation in room 1000-orders for NPO, oral care with suctioning swabs q4 h
--- NOTE | 2020-07-12 10:30 | NUR ---
Physical therapy in room with pt
--- NOTE | 2020-07-12 14:45 | NUR ---
pt and family with palliative care
--- NOTE | 2020-07-12 15:50 | NUR ---
07/12/20- Met with sister and niece to discuss d/c plan. Family and pt both state that they do not want her to go back to [place]. They would like to take her home. Discussed the differences between hospice and home health. Pt has scheduled swallow eval tomorrow and will use this to dictated d/c plan. Will meet with family tomorrow afternoon with recommendations for therapy and they can figure out how they would like to proceed with d/c. Informed family it would be best to cont. antibiotics and pt could potentially d/c after last dose on . Family to talk and figure out what DME they would need in the home at discharge. -Magno with Leah with Palliative care, she reports that there is family coming this afternoon to discuss care/discharge options. Leah reports that sister and pt have stated that they do not want the pt to return to [place]. Sister feels that pt was not getting the attn/care she needed. Pt has LTC policy and sister was advised by Leah to call and get more information about the policy. will meet with Leah to talk with family when they get here. Notified Dr. Venegas of meeting.-alisha chart review with Dr. Venegas, pt on IV antibiotics and will need to be on them until later this week. The hope is that she can go to SNF to complete IV antibiotics and then return to [place]. Spoke with Norma with [facility] and she has requested to know the stop date of Meropenem, what was the pt's baseline prior to hospitalization and what is the pt's diet. ST saw pt at 0930 and orders were changed to NPO. Pt's discharge has been postponed until tomorrow at the earliest due to dietary changes. -love
--- NOTE | 2020-07-12 16:00 | NUR ---
INITIAL PAL CARE VISIT MADE PLANNED AT 1430, with pt's sister, Peggy, and pt's niece in pt's room. CM, Kyra, arrived later also. Pt is friendly, smiling and obviously happy to have her family present. She is up in a chair with legs on pillow and stool and arms cushioned with towels on arm rests. She states she is ready to return to bed soon. She does not remember her swallow eval or therapy sessions today. All of their notes were reviewed prior to my visit. gave me an update on status and concerns this am and I had spoken with sister by phone this am also. Pt is clear that her first choice would be to go to her sisters home on d/c instead of back to [place] or any other facility. Per sister's request we discussed HH vs Hospice services, their criteria for admission, what benefits of support to pt/family they could provide, SNF, IV antibiotics, therapies and pt's pending swallow re-eval. Much of the decision making hinges on those results. DME discussed, respite CG per pt's LTC insurance benefits, colostomy care and finishing antibiotic RX reviewed. CM planned to meet with family again tomorrow afternoon to further discuss and confirm d/c plan of choice. Sister and niece feel like their questions were answered. I came back later in the afternoon to update RN on our visit and double check that they received all the info that they needed to for today. Pt was happily back in bed and ready for some rest time. She appears sl anxious with all the conversation but is generally happy and pleasant t/o my visits. She did not report pain or distress. She verbalizes understanding of her memory lapses and lack of interest in PO intake. She participated in the conversation and was able to state her wishes. I am not certain that she fully understands all of her medical issues or care needs.
--- NOTE | 2020-07-12 16:18 | NUR ---
pt's family with; pt back to bed, a/o x4, forgetful but pleasant. Palliative care and [place] production planner has consulted with family; this RN recvd report from Palliative RN.
--- NOTE | 2020-07-12 18:41 | NUR ---
shift summary: pt remained oriented x 3-4, very forgetful, pleasant/cooperative. pt remained NPO following speech evaluation. Sister and niece visited pt this shift. THis RN provided family members with ostomy appliance teaching during appliance change. BLE remain very sore/painful. per MD and family, pt's edema and cellulitis decreased from previous. during mike care/delores care, educated family on cleansing process and medication application. pt tolerated all this well. pt states to pain with any IV medication administration, despite every effort made to ease this discomfort. pt does not tolerate any flushing of power glide. L wrist PIV leaking/painful at 1830 application of Lasix, was removed WNL. Pt's lungs remain clear/diminished second half of shift. mike remained patent/draining clear yellow urine.
[2020-07-13 04:44] LABS: BASOPHILS ABSOLUTE AUTO 0.02 K/mm3 (0.00-0.23); BASOPHILS PERCENT AUTO 0 % (0-2); EOSINOPHILS ABSOLUTE AUTO 0.08 K/mm3 (0.00-0.68); EOSINOPHILS PERCENT AUTO 1 % (0-6); Hematocrit 38.7 % (33.0-51.0); Hemoglobin 11.7 g/dL (11.5-16.0); IMMATURE GRAN ABSOLUTE AUTO 0.11 K/mm3 (0.00-0.10); IMMATURE GRAN PERCENT AUTO 1 % (0-1); LYMPHOCYTES ABSOLUTE AUTO 1.39 K/mm3 (0.84-5.20); LYMPHOCYTES PERCENT AUTO 16 % (21-46); MONOCYTES ABSOLUTE AUTO 0.19 K/mm3 (0.16-1.47); MONOCYTES PERCENT AUTO 2 % (4-13); Mean Corpuscular HGB 29.5 pg (26.0-34.0); Mean Corpuscular HGB Conc 30.2 g/dL (31.5-36.5); Mean Corpuscular Volume 98 fL (80-100); Mean Platelet Volume 12.6 fL (9.1-12.4); NEUTROPHILS ABSOLUTE AUTO 7.03 K/mm3 (1.96-9.15); NEUTROPHILS PERCENT AUTO 80 % (41-73); Platelet Count 221 K/mm3 (150-400); RDW Coefficient Variation 15.5 % (11.7-14.2); RDW Standard Deviation 55.3 fL (35.1-46.3); Red Blood Cell Count 3.97 M/mm3 (3.80-5.20); White Blood Cell Count 8.82 K/mm3 (4.00-11.30)
--- NOTE | 2020-07-13 05:01 | NUR ---
SHIFT SUMMARY ASSUMED CARE OF PT AT 1900. PT IS A/OX4 BUT IS VERY FORGETFUL. HEART SOUNDS REGULAR, LUNG SOUNDS DIMINISHED. PT HAS A SIDDIQUI CATHETER DRAINING YELLOW URINE. PT HAS AN OSTOMY BAG. RIMMA ARE IS RED, MEDICATED PER EMAR. PT HAS NO NEW COMPLAINTS. CALL LIGHT IN REACH, BED IN LOWEST POSTION.
[2020-07-13 05:18] LABS: Anion Gap 4 mmol/L (6-16); Blood Urea Nitrogen 5 mg/dL (8-24); CO2, Blood 31 mmol/L (21-32); Calcium, Blood 8.5 mg/dL (8.5-10.1); Chloride, Blood 101 mmol/L (98-108); Creatinine, Blood 0.71 mg/dL (0.40-1.00); Glomerular Filtration Rate >60 (60-); Glucose, Blood 77 mg/dL (70-99); Potassium, Blood 3.4 mmol/L (3.5-5.5); Sodium, Blood 136 mmol/L (136-145)
--- NOTE | 2020-07-13 17:02 | NUR ---
SHIFT SUMMARY: NO ACUTE EVENTS. DENIED PAIN. A&O X 1, FORGETFUL, REPEATS QUESTIONS. COLOSTOMY CLEAN, NO OUTPUT. SIDDIQUI DRAINING YELLOW URINE. UP TO CHAIR WITH 1 PERSON ASSIST WITH GAIT BELT. HAD REPEAT SWALLOW EVAL, NOW ON PUREED DIET WITH HOMEY THICK LIQUIDS. FAMILY VISITED THIS AFTERNOON.
--- NOTE | 2020-07-13 18:06 | NUR ---
ATTEMPTED TO GIVE PT POTASSIUM PILL CUT IN HALF IN APPLESAUCE. SHE WAS UNABLE TO SWALLOW IT IT WAS TOO LARGE, BEGAN COUGHING AND ALMOST CHOKED. AFTER SEVERAL MINUTES, SHE WAS SWALLOWING NORMALLY BUT STATED HER THROAT WAS SORE. IN THE FUTURE, LIQUID POTASSIUM IN THICKENED JUICE MAY BE BETTER FOR HER.
--- NOTE | 2020-07-13 19:00 | NUR ---
ASSUMED CARE RECEIVED REPORT FROM MEGHA HERNÁNDEZ. PT RESTING, IN NAD. NO ACUTE NEEDS ASSESSED AT THIS TIME. CALL LIGHT, POSSESSIONS IN REACH. BED IN LOW POSITIION.
--- NOTE | 2020-07-14 04:54 | NUR ---
EDUCATION DEAN SUMMARY PT ASLEEP, IN NAD. VS REVIEWED,WNL. NO ACUTE CHANGES IN CONDITION TO REPORT OVERNIGHT, SLEPT T/O. SIDDIQUI CATHETER DRAINING CARLOS YELLOW URINE TO GRAVITY, TUBING FREE OF KINKS. NO ACUTE NEEDS ASSESSED AT THIS TIME. CALL LIGHT, POSSESSIONS IN REACH, BED IN LOW POSITION WITH ALARMS ON. WILL CONTINUE TO PROVIDE CARE UNTIL REPORT GIVEN TO ONCOMING RN.
--- NOTE | 2020-07-14 16:21 | NUR ---
Pt up into chair eating lunch upon my arrival around Noon today. She was pleasant and up, sitting there eating her pureed lunch without difficutly. She denies pain, continues eating. No new issues identified at this time. Pt appear to be making progress.
--- NOTE | 2020-07-14 17:59 | NUR ---
SHIFT SUMMARY PT ALERT ORIENTED; DENIES ANY PAIN OR DISCOMFORT. PT IS ON SWALLOW PRECATIONS. SATS WNL. NO APPARENT DISTRESS. BED IS IN THE LOWEST POSTIION AND CALL LIGHT WITHIN REACH
--- NOTE | 2020-07-14 18:00 | NUR ---
Spiritual care note: Provided supportive visit to Ms. Holly. She admits she si still quite weak, but tells me she is determined to do the work to return to baseline. she is hoping to return home with her sister tomorrow. She is LSD and allowed me to provide prayer for continued healing. I will remain available.
[2020-07-15 04:35] LABS: BASOPHILS ABSOLUTE AUTO 0.02 K/mm3 (0.00-0.23); BASOPHILS PERCENT AUTO 0 % (0-2); EOSINOPHILS ABSOLUTE AUTO 0.09 K/mm3 (0.00-0.68); EOSINOPHILS PERCENT AUTO 1 % (0-6); Hematocrit 38.2 % (33.0-51.0); Hemoglobin 11.6 g/dL (11.5-16.0); IMMATURE GRAN ABSOLUTE AUTO 0.16 K/mm3 (0.00-0.10); IMMATURE GRAN PERCENT AUTO 2 % (0-1); LYMPHOCYTES ABSOLUTE AUTO 1.43 K/mm3 (0.84-5.20); LYMPHOCYTES PERCENT AUTO 16 % (21-46); MONOCYTES ABSOLUTE AUTO 0.11 K/mm3 (0.16-1.47); MONOCYTES PERCENT AUTO 1 % (4-13); Mean Corpuscular HGB 29.3 pg (26.0-34.0); Mean Corpuscular HGB Conc 30.4 g/dL (31.5-36.5); Mean Corpuscular Volume 97 fL (80-100); Mean Platelet Volume 12.5 fL (9.1-12.4); NEUTROPHILS ABSOLUTE AUTO 6.98 K/mm3 (1.96-9.15); NEUTROPHILS PERCENT AUTO 79 % (41-73); Platelet Count 238 K/mm3 (150-400); RDW Coefficient Variation 15.6 % (11.7-14.2); RDW Standard Deviation 54.9 fL (35.1-46.3); Red Blood Cell Count 3.96 M/mm3 (3.80-5.20); White Blood Cell Count 8.79 K/mm3 (4.00-11.30)
--- NOTE | 2020-07-15 04:41 | NUR ---
SHIFT SUMMARY PT HAD AN UNEVENTFUL NIGHT. SLEPT THROUGH MUCH OF THE NIGHT. PT IS VERY FORGETFUL. ASKS THE SAME QUESTIONS MULTIPLE TIMES. PT BECAME UPSET BEING WOKEN THIS AM FOR LAB AND VITALS BUT WAS COOPERATIVE WITH CARE. SIDDIQUI CATH REMAINED PATENT AND DRAINING LIGHT YELLOW URINE. COLOSTOMY TO LLQ. SOME REDNESS TO RIMMA AREA AND BENEATH BREASTS. ANTIFUNGAL POWDER APPLIED. PT TOOK PILLS CRUSHED IN APPLESAUCE AND TOLERATED WELL. PT IS PAINFUL WITH MOVEMENT OF BODY. DENIES PAIN WHEN RESTING. VITAL SIGNS STABLE. WILL CONTINUE TO MONITOR.
[2020-07-15 04:55] LABS: Anion Gap 4 mmol/L (6-16); Blood Urea Nitrogen 7 mg/dL (8-24); Bun/Creatinine Ratio 9.5 (12.0-20.0); CO2, Blood 34 mmol/L (21-32); Chloride, Blood 99 mmol/L (98-108); Creatinine, Blood 0.74 mg/dL (0.40-1.00); Glomerular Filtration Rate >60 (60-); Glucose, Blood 86 mg/dL (70-99); Potassium, Blood 3.2 mmol/L (3.5-5.5); Sodium, Blood 137 mmol/L (136-145)
[2020-07-15] MEDS ORDERED: SPIR25 PO (11:46)
--- NOTE | 2020-07-15 18:18 | NUR ---
07/15/201810: Spoke with family members Peggy sister, Reba niece, and Esdras. They are confused in what level of care pt. is needing and how best to proceed with discharge. Their understanding at the beginning of the week was that [place] was declining rapidly and would soon need hospice. They have now heard from hospital staff that she is improving and able to ambulate. They are very concerned about making a decision that could impact [place] negatively. They would be interested in having PT reassess the patient and advise if SNF would be beneficial at this point. Will discuss further with physician tomorrow.
--- NOTE | 2020-07-15 19:21 | NUR ---
SHIFT SUMMARY PT WALKED IN HALLWAY 50 FEET WITH SBA WITH GB AND WALKER, DID WELL BUT DEFINITELY TIRED OUT. UP TO CHAIR FOR MEALS. FORGETFUL. GOT TYLENOL FOR LUE PAIN. MEPILEX ON BOTTOM AND BACK REAPPLIED. BROTHER VISITED. LIQUID GIVEN BY SPOON ONLY. PILLS IN APPLESAUCE. CALL LIGHT IN REACH, REPORT GIVEN TO NIGHT NURSE
--- NOTE | 2020-07-16 05:42 | NUR ---
SHIFT SUMMARY PT SLEPT WELL THIS EVENING. PAINFUL W/ MOVEMENT, ESPECIALLY TO LUE BUT DENIES THE NEED FOR MEDICATION ONCE RESTING IN BED. SIDDIQUI CATHETER PATENT AND DRAINING LIGHT YELLOW URINE. COLOSTOMY TO LLQ. REDNESS TO GROIN, ANTIFUNGAL POWDER APPLIED. NO ACUTE EVENTS THIS EVENING. VITAL SIGNS STABLE. PLAN FOR PT TO D/C HOME WITH SISTER TODAY.
--- NOTE | 2020-07-16 07:30 | NUR ---
ASSUMED CARE: PT LAYING IN BED BUT AWAKE AND TALKING TO STAFF DURING BEDSIDE REPORT. DENIES NEEDS OR CONCERNS AT THIS TIME.
--- NOTE | 2020-07-16 09:28 | NUR ---
PT'S AC IV CAME OUT WHEN ATTEMPTING TO FIX LEAKING AND WRIST IV HAD INFILTRATED. IV ABX HELD DUE TO NO ACCESS. DISCUSSED WITH DR KAHN WHO STATES OK TO KEEP IV'S OUT AND WILL SWITCH ABX TO ORAL DUE TO PT LIKELY BEING DC'D HOME TODAY
--- NOTE | 2020-07-16 12:57 | NUR ---
07/16/20- spoke with sister, would like her to go to [facility], sent packet for review. They have stated that they are concerned about complexity of care. They will do the assessment Sunday but they would not be able to take the pt until . Pt to stay through the weekend. -love
--- NOTE | 2020-07-16 18:40 | NUR ---
SHIFT SUMMARY PATIENT ALERT BUT FORGETFUL. NO IV ACCESS AT THIS TIME. PATIENT TOLERATING MEDS CRUSHED IN APPLESAUCE. PLAN IS TO BE EVALUATED BY [facility] IN HOPES OF DISCHARGE AFTER THE WEEKEND. SISTER AT THE BEDSIDE FOR THE AFTERNOON. DR. KAHN IN TO SEE THE PATIENT AND CONVERSE WITH SISTER ABOUT PLANS. PATIENT IS RESTING COMFORTABLY IN BED.
--- NOTE | 2020-07-17 04:06 | NUR ---
SHIFT SUMMARY PATIENT HAD NO ACUTE CHANGES OBSERVED. AXO X 2-3 WITH CONFUSION AT TIMES. TWO ASSIST WITH FWW/GAIT BELT TO BSC. NO IV ACCESS. SIDDIQUI PATENT AND DRAINING. COLOSTOMY LLQ. TAKES MEDICATION CRUSHED IN APPLESAUCE. VSS/AFEBRILE. DENIES PAIN, SOB, AND N/V. CALL LIGHT IN REACH. BED IN LOWEST POSITION AND ALARM ACTIVATED. WILL CONTINUE TO MONITOR UNTIL DAY SHIFT NURSE ASSUMES CARE.
[2020-07-17 04:53] LABS: BASOPHILS ABSOLUTE AUTO 0.04 K/mm3 (0.00-0.23); BASOPHILS PERCENT AUTO 0 % (0-2); EOSINOPHILS ABSOLUTE AUTO 0.13 K/mm3 (0.00-0.68); EOSINOPHILS PERCENT AUTO 1 % (0-6); Hematocrit 43.9 % (33.0-51.0); Hemoglobin 13.3 g/dL (11.5-16.0); IMMATURE GRAN ABSOLUTE AUTO 0.34 K/mm3 (0.00-0.10); IMMATURE GRAN PERCENT AUTO 2 % (0-1); LYMPHOCYTES ABSOLUTE AUTO 1.54 K/mm3 (0.84-5.20); LYMPHOCYTES PERCENT AUTO 10 % (21-46); MONOCYTES ABSOLUTE AUTO 0.13 K/mm3 (0.16-1.47); MONOCYTES PERCENT AUTO 1 % (4-13); Mean Corpuscular HGB 29.2 pg (26.0-34.0); Mean Corpuscular HGB Conc 30.3 g/dL (31.5-36.5); Mean Corpuscular Volume 96 fL (80-100); Mean Platelet Volume 10.5 fL (9.1-12.4); NEUTROPHILS ABSOLUTE AUTO 13.17 K/mm3 (1.96-9.15); NEUTROPHILS PERCENT AUTO 86 % (41-73); Platelet Count 238 K/mm3 (150-400); RDW Coefficient Variation 15.7 % (11.7-14.2); RDW Standard Deviation 55.7 fL (35.1-46.3); Red Blood Cell Count 4.56 M/mm3 (3.80-5.20); White Blood Cell Count 15.35 K/mm3 (4.00-11.30)
[2020-07-17 05:10] LABS: Anion Gap 3 mmol/L (6-16); Blood Urea Nitrogen 9 mg/dL (8-24); Bun/Creatinine Ratio 10.2 (12.0-20.0); CO2, Blood 31 mmol/L (21-32); Calcium, Blood 8.8 mg/dL (8.5-10.1); Chloride, Blood 99 mmol/L (98-108); Creatinine, Blood 0.88 mg/dL (0.40-1.00); Glomerular Filtration Rate >60 (60-); Glucose, Blood 83 mg/dL (70-99); Potassium, Blood 3.9 mmol/L (3.5-5.5); Sodium, Blood 133 mmol/L (136-145)
--- NOTE | 2020-07-17 16:37 | NUR ---
SHIFT SUMMARY PT AWAKE AT START OF SHIFT. UP TO CHAIR FOR BREAKFAST AND SEVERAL HOURS AFTER. PT ABLE TO WALK IN HALLS USING FWW, WITH AUDITOR TAX. OCCASSIONAL CONFUSION AND FORGETFULNESS. PT WAS TO HAVE HAD [facility] WITH ASSISTED LIVING; [facility]. FAMILY IN AT THIS TIME. NO C/O. CALL LT IN REACH.
--- NOTE | 2020-07-18 03:31 | NUR ---
SHIFT SUMMARY PATIENT HAD NO ACUTE CHANGES OBSERVED. AXOX 3 WITH CONFUSION. SIDDIQUI PATENT AND DRAINING. COLOSTOMY LLQ. REFINERY OPERATOR CRUDE UNIT HAD PATIENT WALK IN RROM WITH FWW. TAKES MEDICATION CRUSHED IN APPLESAUCE. NO IV ACCESS. VSS/AFEBRILE. DENIES PAIN, SOB, AND N/V. CALL LIGHT IN REACH. BED IN LOWEST POSITION. WILL CONTINUE TO MONITOR UNTIL DAY SHIFT NURSE ASSUMES CARE.
[2020-07-18 05:10] LABS: Bun/Creatinine Ratio 12.1 (12.0-20.0); Calcium, Blood 8.9 mg/dL (8.5-10.1); Creatinine, Blood 0.99 mg/dL (0.40-1.00); Potassium, Blood 3.7 mmol/L (3.5-5.5)
--- NOTE | 2020-07-18 07:15 | NUR ---
ASSUMED CARE: PT RESTING QUIETLY IN BED. NO ACUTE NEEDS OR CONCERNS AT THIS TIME.
--- NOTE | 2020-07-18 17:16 | NUR ---
SHIFT SUMMARY: PT HAS BEEN UP TO CHAIR FOR MEALS AND AMBULATORY IN HALLS. SIDDIQUI IN PLACE WITH LOW URINE OUTPUT. SISTER AT BEDSIDE. PLAN IS FOR DC TO FACILITY LIKELY SUNDAY POSSIBLY TO [facility] OR TO SNF. PT COOPERATIVE BUT SLIGHTLY CONFUSED AT TIMES. NO ACUTE NEEDS OR CONCERNS AT THIS TIME.
--- NOTE | 2020-07-19 03:05 | NUR ---
SUMMARY PT REPORTS SLEEPING WELL. SO FAR 250 ML VIA SIDDIQUI. REPORT GIVEN TO MADY CLEVELAND WHO IS ASSUMING CARE.
--- NOTE | 2020-07-19 03:10 | NUR ---
CAR REPAIRER APPRENTICE OF PATIENT: REPORT TAKEN FROM OMI CLEVELAND.
[2020-07-19 04:42] LABS: BASOPHILS ABSOLUTE AUTO 0.07 K/mm3 (0.00-0.23); BASOPHILS PERCENT AUTO 1 % (0-2); EOSINOPHILS ABSOLUTE AUTO 0.09 K/mm3 (0.00-0.68); EOSINOPHILS PERCENT AUTO 1 % (0-6); Hematocrit 43.3 % (33.0-51.0); Hemoglobin 13.5 g/dL (11.5-16.0); Mean Corpuscular HGB 30.1 pg (26.0-34.0); Mean Corpuscular HGB Conc 31.2 g/dL (31.5-36.5); Mean Corpuscular Volume 97 fL (80-100); Mean Platelet Volume 11.5 fL (9.1-12.4); Platelet Count 299 K/mm3 (150-400); RDW Coefficient Variation 15.6 % (11.7-14.2); RDW Standard Deviation 54.4 fL (35.1-46.3); Red Blood Cell Count 4.48 M/mm3 (3.80-5.20); White Blood Cell Count 13.44 K/mm3 (4.00-11.30)
[2020-07-19 04:43] LABS: IMMATURE GRAN ABSOLUTE AUTO 0.24 K/mm3 (0.00-0.10); IMMATURE GRAN PERCENT AUTO 2 % (0-1); LYMPHOCYTES ABSOLUTE AUTO 1.59 K/mm3 (0.84-5.20); LYMPHOCYTES PERCENT AUTO 12 % (21-46); MONOCYTES ABSOLUTE AUTO 0.17 K/mm3 (0.16-1.47); MONOCYTES PERCENT AUTO 1 % (4-13); NEUTROPHILS ABSOLUTE AUTO 11.28 K/mm3 (1.96-9.15); NEUTROPHILS PERCENT AUTO 84 % (41-73)
[2020-07-19 05:00] LABS: Albumin, Blood 2.5 g/dL (3.4-5.0); Albumin/Globulin Ratio 0.6 (0.8-1.8); Bilirubin, Total 0.6 mg/dL (0.1-1.0); Bun/Creatinine Ratio 13.5 (12.0-20.0); Calcium, Blood 8.5 mg/dL (8.5-10.1); Creatinine, Blood 1.04 mg/dL (0.40-1.00); Globulin, Blood 4.1 g/dL (2.2-4.0); Potassium, Blood 3.6 mmol/L (3.5-5.5); Total Protein, Blood 6.6 g/dL (6.4-8.2)
--- NOTE | 2020-07-19 17:27 | NUR ---
SHIFT SUMMARY PT IS AO X2-3 AND FORGETFUL. PT DENIES PAIN, N/V, SOB. PT IS ONE PERSON ASSIST WITH FWW AND REFUSED WORKING WITH PT X2. PT APPETITE IS GOOD WITH POOR FLUID INTAKE. NO PROCEDURES DONE THIS SHIFT. PLAN IS FOR POTENTIAL DC TOMORROW. PT'S DAUGHTER IN THE ROOM THIS RASHARD. CONTACT PRECUATIONS MAINTAINED T/O SHIFT. PT IS IN CHAIR, CALL LIGHT IN REACH.
--- NOTE | 2020-07-20 02:39 | NUR ---
80 year old Female with Sepis UTI chronic indwelling mike changed on admission had enterbact aero urine culture continues in contact isolation for ESBL. PT has aspiration pneumonia & has pureed diet honey thick liquids per ST recommendations. ON oral keflex to tx infection. Hx of colon cancer with ostomy lt lower abd with brown pasty stool & flatus out ostomy. Medicated for pain to bilat le with touch with helpful effect. Dc planning continues.
[2020-07-20 05:39] LABS: BASOPHILS ABSOLUTE AUTO 0.05 K/mm3 (0.00-0.23); BASOPHILS PERCENT AUTO 0 % (0-2); EOSINOPHILS ABSOLUTE AUTO 0.14 K/mm3 (0.00-0.68); EOSINOPHILS PERCENT AUTO 1 % (0-6); Hematocrit 41.5 % (33.0-51.0); Hemoglobin 12.8 g/dL (11.5-16.0); Mean Corpuscular HGB 30.1 pg (26.0-34.0); Mean Corpuscular HGB Conc 30.8 g/dL (31.5-36.5); Mean Corpuscular Volume 98 fL (80-100); Mean Platelet Volume 10.8 fL (9.1-12.4); Platelet Count 292 K/mm3 (150-400); RDW Coefficient Variation 15.6 % (11.7-14.2); RDW Standard Deviation 55.2 fL (35.1-46.3); Red Blood Cell Count 4.25 M/mm3 (3.80-5.20); White Blood Cell Count 12.83 K/mm3 (4.00-11.30)
[2020-07-20 05:42] LABS: IMMATURE GRAN ABSOLUTE AUTO 0.22 K/mm3 (0.00-0.10); IMMATURE GRAN PERCENT AUTO 2 % (0-1); LYMPHOCYTES ABSOLUTE AUTO 1.55 K/mm3 (0.84-5.20); LYMPHOCYTES PERCENT AUTO 12 % (21-46); MONOCYTES ABSOLUTE AUTO 0.12 K/mm3 (0.16-1.47); MONOCYTES PERCENT AUTO 1 % (4-13); NEUTROPHILS ABSOLUTE AUTO 10.75 K/mm3 (1.96-9.15); NEUTROPHILS PERCENT AUTO 84 % (41-73)
[2020-07-20 06:14] LABS: Albumin, Blood 2.4 g/dL (3.4-5.0); Albumin/Globulin Ratio 0.6 (0.8-1.8); Bilirubin, Total 0.5 mg/dL (0.1-1.0); Bun/Creatinine Ratio 14.2 (12.0-20.0); Calcium, Blood 8.5 mg/dL (8.5-10.1); Creatinine, Blood 1.06 mg/dL (0.40-1.00); Globulin, Blood 4.1 g/dL (2.2-4.0); Potassium, Blood 3.4 mmol/L (3.5-5.5); Total Protein, Blood 6.5 g/dL (6.4-8.2)
--- NOTE | 2020-07-20 06:18 | NUR ---
PT continues at risk for aspiration on pureed diet with honey thick liquids by spoon, Crush crushable meds.
--- NOTE | 2020-07-20 17:01 | NUR ---
SUMMARY PT SITTING UP IN BED VISITING WITH HER SISTER, PT HAS BEEN PLEASANT AND COOPERATIVE WITH CARE, T/O THE DAY, PT FORGETFUL AND PLEASANTLY CONFUSED, PT WORKED WITH THERAPY AND WAS ABLE TO WALK A SHORT WHILE IN THE HALLS, CARE MANAGEMENT WORKING ON A DISCHARGE PLAN, VSS, WILL CONTINUE TO MONITOR
[2020-07-21 04:55] LABS: BASOPHILS ABSOLUTE AUTO 0.03 K/mm3 (0.00-0.23); BASOPHILS PERCENT AUTO 0 % (0-2); EOSINOPHILS ABSOLUTE AUTO 0.15 K/mm3 (0.00-0.68); EOSINOPHILS PERCENT AUTO 1 % (0-6); Hemoglobin 12.7 g/dL (11.5-16.0); Mean Corpuscular HGB 29.1 pg (26.0-34.0); Mean Corpuscular HGB Conc 30.2 g/dL (31.5-36.5); Mean Corpuscular Volume 96 fL (80-100); Mean Platelet Volume 12.1 fL (9.1-12.4); Platelet Count 355 K/mm3 (150-400); RDW Coefficient Variation 15.7 % (11.7-14.2); RDW Standard Deviation 54.6 fL (35.1-46.3); Red Blood Cell Count 4.36 M/mm3 (3.80-5.20); White Blood Cell Count 12.31 K/mm3 (4.00-11.30)
[2020-07-21 04:57] LABS: IMMATURE GRAN ABSOLUTE AUTO 0.15 K/mm3 (0.00-0.10); IMMATURE GRAN PERCENT AUTO 1 % (0-1); LYMPHOCYTES ABSOLUTE AUTO 1.45 K/mm3 (0.84-5.20); LYMPHOCYTES PERCENT AUTO 12 % (21-46); MONOCYTES PERCENT AUTO 1 % (4-13); NEUTROPHILS ABSOLUTE AUTO 10.43 K/mm3 (1.96-9.15); NEUTROPHILS PERCENT AUTO 85 % (41-73)
[2020-07-21 05:13] LABS: Albumin, Blood 2.3 g/dL (3.4-5.0); Albumin/Globulin Ratio 0.6 (0.8-1.8); Bilirubin, Total 0.4 mg/dL (0.1-1.0); Bun/Creatinine Ratio 15.3 (12.0-20.0); Calcium, Blood 8.4 mg/dL (8.5-10.1); Creatinine, Blood 0.98 mg/dL (0.40-1.00); Globulin, Blood 4.1 g/dL (2.2-4.0); Potassium, Blood 3.4 mmol/L (3.5-5.5); Total Protein, Blood 6.4 g/dL (6.4-8.2)
--- NOTE | 2020-07-21 15:16 | NUR ---
07/21/20- ORDERED HOSPITAL BED TO BE DELIVERED TO SISTER'S HOME FOR THE PT. INFORMED DR. WASHINGTON THAT HE WILL NEED TO PUT IN NEW FACE TO FACE ORDER FOR HOME HEALTH FOR NURSING, PT, OT AND COLOSTOMY TRAINING. WAS TRYING TO GET THE PT OUT OF THE HOSPITAL TODAY, UNSURE IF THAT IS POSSIBLE GIVEN IT'S LATE AFTERNOON. [facility] WITH [facility] SAID THEY COULD POTENTIALLY TAKE THE PT ONTO SERVICE ON SUNDAY. ATTEMPTED TO TALK WITH SISTER BUT SHE WAS DRIVING IN AND SOMEONE ELSE WAS CALLING HER. WILL MEET WITH HER IN THE PT'S ROOM WHEN SHE GETS HER. 07/21/20-CALLED SISTER TO DISCUSS [facility]S DECLINE TAKING THE PT DUE TO HER HIGH LEVEL OF CARE NEEDS. SISTER STATED THAT SHE ISN'T SURE WHAT TO DO, NEEDED TO CALL BACK AFTER SHE HAS GOTTEN SOMEONE TO COME HELP HER MAKE THIS DECISION. DID ASK IF THEY ARE STILL DO NOT WANT TO GO TO [place]. SISTER DOES NOT WANT HER TO RETURN TO [place]. ADVISED SISTER THAT IF SHE WANTED TO COME INTO THE HOSPITAL, WE COULD TALK IN PERSON. SISTER STATED THAT [facility] HAVE SAID [facility]." WILL NEED TO ASSESS THE CHART FOR RECOMMENDATIONS MADE OVER THE HOLIDAY WEEKEND. [facility] [employer] A[employer] CALLED [facility] TO SEE IF THEY HAVE A ROOM AVAILABLE. THEY HAVE 1 PRIVATE-PAY ROOM. PACKET CREATED AND SENT FOR REVIEW. -YINKA
--- NOTE | 2020-07-21 17:51 | NUR ---
SUMMARY PT SITTING UP IN THE CHAIR AT THE BEDSIDE, PT HAS BEEN PLEASANT AND COOPERATIVE WITH CARE T/O THE DAY, PLEASANTLY CONFUSED, SISTER IS HERE VISITING, PLAN TO DC HOME TOMORROW WITH THE SISTER AND HOME HEALTH, EDUCATION REGARDING CATHETER, OSTOMY, AND THICKENED DIET GIVEN TO THE SISTER, HOME HEALTH TO FOLLOW THE PT, VSS, WILL CONT TO MONITOR
--- NOTE | 2020-07-22 07:29 | NUR ---
SHIFT SUMMARY: PATIENT IS A&O TO SELF, LEFT SHOULDER HAS DECREASED ROM AND IS PAIN IF NOT RESTING ON A PILLOW. VSS, TOLERATING HONEY THICK LIQUIDS FAIR. ONLY LIKES COLD CRANBERRY JUICE. SIDDIQUI HAS DECREASED OUTPUT OF CARLOS URINE. COLOSTOMY IS ACTIVE FOR BROWN PASTY STOOL. BED ALARM IS ON FOR SAFETY.
--- NOTE | 2020-07-22 12:45 | NUR ---
07/22/20- PT WILL BE D/C HOME TO HER SISTER'S HOME TODAY. TRANSPORTATION IS SET UP FOR 1130. SISTER WILL COME TO THE HOSPITAL AT 11 TO GO OVER THE D/C INSTRUCTIONS. CONTACTED [facility] AND THEY WILL BE DELIVERING THE BED TODAY BEFORE 2PM. TERRI WITH [facility] HAS BEEN UPDATED ON DISCHARGE. SISTER HAS BEEN CALLED AND UPDATED ALSO. -YINKA
--- NOTE | 2020-07-22 14:24 | NUR ---
PT DISCHARGED HOME WITH HOME HEALTH AT 1145 VIA WHEELCHAIR AND TRANSPORTED BY [facility]. FAMILY HAD MEDS AND PAPERWORK REVIEWED WITH THEM. PT HAS BEEN A0X2 AND COOPERATIVE OF CARE. NO DISTRESS NOTED AND CHEN CHENEYING WELL. OSTOMY BAG CHANGED PRIOR TO DISCHARGE. ALL PERSONAL BELONINGS COLLECTED BY FAMILY.
== END 2020-07-22 12:15 | disposition home or self-care (01) | DRG 698 ==
LOC: ER 11:07 → MEDS 11:08 → PCU 15:00 → MEDS 15:01 → PCU 17:35 → MEDS 07-06 22:38 → ICUW 07-07 22:00 → PCU 07-08 15:26 → MEDS 07-11 14:47 → ENPENDDIS 07-21 18:23 → MEDS 07-22 12:15
PROVIDERS: Emergency Medicine; Family Medicine; Nurse Practitioner Acute Care; ADMIT Hospitalist
DX: T83.511A Infection and inflammatory reaction due to indwelling urethral catheter, initial encounter (principal); A41.59 Other Gram-negative sepsis; G92 Toxic encephalopathy; R65.20 Severe sepsis without septic shock; L03.314 Cellulitis of groin; E87.2 Acidosis; Z16.24 Resistance to multiple antibiotics; I50.32 Chronic diastolic (congestive) heart failure; L03.315 Cellulitis of perineum; N39.0 Urinary tract infection, site not specified; D75.1 Secondary polycythemia; M81.0 Age-related osteoporosis without current pathological fracture; Z20.822 Contact with and (suspected) exposure to COVID-19; I11.0 Hypertensive heart disease with heart failure; R33.8 Other retention of urine; J44.9 Chronic obstructive pulmonary disease, unspecified; E66.9 Obesity, unspecified; K52.9 Noninfective gastroenteritis and colitis, unspecified; E03.9 Hypothyroidism, unspecified; I48.0 Paroxysmal atrial fibrillation; R31.29 Other microscopic hematuria; I25.5 Ischemic cardiomyopathy; R13.12 Dysphagia, oropharyngeal phase; F03.90 Unspecified dementia, unspecified severity, without behavioral disturbance, psychotic disturbance, mood disturbance, and anxiety; L73.9 Follicular disorder, unspecified; E83.39 Other disorders of phosphorus metabolism; B37.9 Candidiasis, unspecified; I25.10 Atherosclerotic heart disease of native coronary artery without angina pectoris; E87.6 Hypokalemia; I25.2 Old myocardial infarction; Z86.711 Personal history of pulmonary embolism; Z88.0 Allergy status to penicillin; Z88.1 Allergy status to other antibiotic agents; Z98.1 Arthrodesis status; Z95.5 Presence of coronary angioplasty implant and graft; Z90.89 Acquired absence of other organs; Z98.890 Other specified postprocedural states; Z87.440 Personal history of urinary (tract) infections; Y84.6 Urinary catheterization as the cause of abnormal reaction of the patient, or of later complication, without mention of misadventure at the time of the procedure; Z93.3 Colostomy status; Z86.718 Personal history of other venous thrombosis and embolism; Z85.038 Personal history of other malignant neoplasm of large intestine; Z90.49 Acquired absence of other specified parts of digestive tract; Z79.01 Long term (current) use of anticoagulants; Z79.899 Other long term (current) drug therapy
CPT/HCPCS: 36415; 51703; 71045; 71046; 72193; 73030; 74177; 80048; 80053; 80069; 81001; 83605; 83735; 83880; 84100; 85025; 85651; 86140; 87040; 87077; 87086; 87186; 92526; 92610; 93005; 93010; 93971; 94640; 94667; 94668; 94760; 96374; 97110; 97116; 97162; 97166; 97530; 97535; 99285-25; A9270; C1751; J0696; J1450; J1940; J2185; J2405; J3260; J3475; J3480; J7030; J7050; J7060; J7120; Q9967